=== PATIENT | female | born 1950 | race Caucasian/White ===

== ENCOUNTER 2016-12-03 07:30 | Day surgery (SDC) | payer BC ==
[2016-12-02 09:02] VITALS: BMI 26.5
[~2016-12-03 07:30] MED LIST: LACTATED RINGERS 1,000 ML IV SCH
[2016-12-03 07:55] VITALS: TEMP 97.8
[2016-12-03] MEDS ORDERED: LIDOCAINE 1% 20 ML VIAL (10MG/ML) FOR IV START INTRADERMA ONE (08:04)
[2016-12-03] MEDS ORDERED: PROPOFOL 10 MG/ML 20 ML VIAL IV ONE (08:17)
[2016-12-03] MEDS ORDERED: LIDOCAINE 1% INJ 10MG/ML (20 ML MDV) ONE (08:17)
--- NOTE | 2016-12-03 08:22 | P.GSHP ---
History of Present Illness H&P Date: 12/03/16 Chief Complaint: GERD Patient here today for upper endoscopy. The patient is a history of chronic reflux. Some dysphagia at times. Also has chronic nausea. She takes Zantac no prior upper endoscopy. Past Medical History Past Medical History: GERD/Reflux, Hypertension, Rheumatoid Arthritis (RA) Additional Past Medical History / Comment(s): PT STATES SLEEP APNEA (UNDIAGNOSED ). IBS. History of Any Multi-Drug Resistant Organisms: None Reported Past Surgical History: Appendectomy, Cholecystectomy, Hysterectomy, Orthopedic Surgery Additional Past Surgical History / Comment(s): VARICOSE VEIN. Past Anesthesia/Blood Transfusion Reactions: Motion Sickness Past Psychological History: No Psychological Hx Reported Smoking Status: Never smoker Past Alcohol Use History: Occasional Past Drug Use History: None Reported - Past Family History Sister(s) Family Medical History: Cancer Additional Family Medical History / Comment(s): non hodgkins lymphoma Father Family Medical History: Cancer Additional Family Medical History / Comment(s): multiple myeloma Medications and Allergies Home Medications Medication Instructions Recorded Confirmed Type Esomeprazole Magnesium [NexIUM] 20 mg PO QAM 07/01/14 12/02/16 History Estradiol Cream [Estrace Cream 1 applicate VAGINAL TUTH 07/01/14 12/02/16 History 0.01%] Meloxicam [Meloxicam] 15 mg PO DAILY 07/01/14 12/02/16 History Lifitegrast [Xiidra] 1 dropper BOTH EYES DAILY 12/02/16 12/02/16 History Losartan-Hctz 50-12.5 mg [Hyzaar 1 tab PO DAILY 12/02/16 12/02/16 History 50-12.5] Multivitamins, Thera [Multivitamin] 1 tab PO DAILY 12/02/16 12/02/16 History Ranitidine HCl [Zantac] 150 mg PO HS 12/02/16 12/02/16 History Allergies Allergy/AdvReac Type Severity Reaction Status Date / Time No Known Allergies Allergy Verified 12/02/16 08:46 Surgical - Exam Vital Signs Temp Pulse Resp BP Pulse Ox 97.8 F 74 18 116/75 95 12/03/16 07:54 12/03/16 07:54 12/03/16 07:54 12/03/16 07:54 12/03/16 07:54 Physical exam: General: Well-developed, well-nourished HEENT: Normocephalic, sclerae nonicteric Abdomen: Nontender, nondistended Extremities: No edema Neuro: Alert and oriented Assessment and Plan (1) GERD (gastroesophageal reflux disease) Narrative/Plan: Will proceed with upper endoscopy at this time. Status: Acute
--- NOTE | 2016-12-03 08:30 | P.PCN ---
Date of Procedure: 12/03/16 Procedure(s) Performed: Preoperative Dx: GERD Postoperative Dx: Gastritis, Hiatal hernia, Schatzki's ring Procedure: EGD with Bx Anesthesia: Sedation Endoscopist: Dr. Sy Specimens: Antrum, GE junction Endoscopic Procedure: The patient was on the endoscopy table in the left decubitus position. The Olympus gastroscope was inserted into the oropharynx and passed under direct visualization to the region of the third portion of the duodenum. From that point the scope was slowly withdrawn inspecting all surfaces carefully. There were no neoplastic inflammatory or polypoid lesions throughout the duodenum. The pylorus was widely patent. The stomach was carefully inspected. There was diffuse gastritis present. A biopsy of the antrum took place to rule out H. pylori. Retroflexion revealed a small hiatal hernia. The GE junction was present about 1-1.5 cm above the diaphragmatic hiatus. At the GE junction there was some subtle narrowing consistent with a mild Schatzki's ring a biopsy of the GE junction took place. The remainder the esophagus was examined. This appeared normal. The patient was then taken to the recovery room in stable condition per anesthesia guidelines. Recommendations: Await biopsy results. Modify antiacid therapy.
[2016-12-03 08:38] VITALS: RESP 16
[2016-12-03 08:57] VITALS: BP 137/79; PULSE 79
== END 2016-12-03 09:13 | disposition home or self-care (01) ==
LOC: ORWHC2ENDO 07:30
PROVIDERS: ATTEND Surgery
DX: K21.0 Gastro-esophageal reflux disease with esophagitis (principal); K44.9 Diaphragmatic hernia without obstruction or gangrene; K22.2 Esophageal obstruction; K29.50 Unspecified chronic gastritis without bleeding; I10 Essential (primary) hypertension; M06.9 Rheumatoid arthritis, unspecified; Z79.899 Other long term (current) drug therapy
CPT/HCPCS: 88305; 88342; 43239; J2001; J2704

== ENCOUNTER → 2017-01-31 | Outpatient (CLI) | payer BC ==
--- NOTE | 2017-02-04 07:31 | MM ---
Reason for exam: screening (asymptomatic). Last mammogram was performed 1 year and 4 months ago. History: Patient is postmenopausal and history of other cancer. Benign right US cyst aspiration ea add of the right breast, May 10, 2008. Took estrogen for 10 years 4 months beginning at age 52. Physical Findings: A clinical breast exam by your physician is recommended on an annual basis and results should be correlated with mammographic findings. MG Screening Mammo w CAD Bilateral CC and MLO view(s) were taken. Prior study comparison: September 18, 2015, bilateral MG screening mammo w CAD. August 11, 2014, bilateral MG screening mammo w CAD. July 23, 2013, bilateral digital screening mammo w/CAD. The breast tissue is heterogeneously dense. This may lower the sensitivity of mammography. No significant changes when compared with prior studies. ASSESSMENT: Negative, BI-RAD 1 RECOMMENDATION: Routine screening mammogram of both breasts in 1 year.
== END | disposition home or self-care (01) ==
LOC: RADMAMWWP 16:23
PROVIDERS: ATTEND Obstetrics & Gynecology
DX: Z12.31 Encounter for screening mammogram for malignant neoplasm of breast (principal)

== ENCOUNTER → 2017-03-14 | Outpatient (CLI) | payer BC ==
[2017-03-14 11:19] LABS: Blood Urea Nitrogen 25 mg/dL (7-17); Non-African American GFR(MDRD) >60 (>60 ml/min/1.73 sqM)
--- NOTE | 2017-03-14 12:46 | ECHOS ---
DATE OF SERVICE: 03/14/2017 AGE: 66Y SEX: F HT: 64 WT: 150 lbs. Protocol Juve: X Others: Stress Echo Stage: II Dur. of Exercise: 6 minutes *Heart Rate Blood Pressure *Rest: 79 Rest: 121/81 * *Max. Achieved: 141 Maximum BP: 148/67 85% PMHR: 131 100% PMHR: 154 *METS: 7.1 INDICATIONS: Abnormal EKG. MEDICATIONS: Lisinopril, Mobic. Patient was exercised for a total period of 6 minutes. Peak heart rate of 141 was achieved. Maximum blood pressure of 148/67 mmHg was noted. EKG shows normal sinus rhythm with normal MS interval and QRS duration and normal ST-T waves. About [address] segment depression noted during and in the postexercise period without associated with any symptoms of angina. The test was terminated because patient got short of breath. Baseline echocardiographic images reveals a normal left ventricular chamber size with normal left ventricular systolic function. In the immediate postexercise period, normal increase in the wall thickness and contractility is noted. FINAL IMPRESSION: 1. This stress echocardiographic study is negative for stress-induced ischemia. 2. EKG portion of the stress test shows a ST segment depression without associated with any angina, it could be secondary to hypertension versus ischemia. Clinical correlation is suggested. 3. The patient's stress test was limited because of the symptoms of shortness of breath.
--- NOTE | 2017-03-14 13:02 | CT ---
EXAMINATION TYPE: CT lumbar spine w con DATE OF EXAM: 03/14/2017 COMPARISON: NONE HISTORY: Low back pain. Numbness and tingling. CT DLP: 854.05 mGycm Automated exposure control for dose reduction was used. CONTRAST: CT scan of the lumbar is performed with IV Contrast, patient injected with 100 ml mL of Omnipaque [address] of the lumbar spine was performed. Bone and soft tissue window settings are submitted as well as coronal and sagittal reconstructions. FINDINGS: There is complete loss of intervertebral disc space height at the level of L4-5, no pars defect is id entified. There is grade 1 anterolisthesis of L4 on L5. There is grade 1 retrolisthesis of L5 on S1. There is vacuum disc phenomenon noted at L4-5 and L5-S1. There is compression of the vertebral body a long the inferior endplate of L4. Visualized soft tissue structures are unremarkable. L1-L2: Normal disc space height. No disc herniation protrusion or central stenosis. No facet joint arthropathy. No evidence for foraminal encroachment. L2-L3: There is normal disc space height. There is minimal disc bulge noted which effaces the ventral thecal sac. There is also ligamentum flavum hypertrophy and minimal facet hypertrophy. There is no c entral canal stenosis or foraminal narrowing. L3-L4: Normal disc space height. There is mild disc bulge. There is mild ligamentum flavum hypertroph y and facet arthropathy. There is no central canal stenosis or neural foraminal narrowing. L4-L5: Complete loss of vertebral bodies vertebral disc space height with questionable minimal collap se of the inferior endplate. There is also grade 1 anterolisthesis. There is no central canal stenosi s. There is moderate to severe right greater than left neural foraminal narrowing. L5-S1: No central canal stenosis is identified. There is minimal disc bulge identified. There is face t arthropathy noted. There is moderate bilateral neural foraminal narrowing worse on the left than th e right. IMPRESSION: Foraminal narrowing is noted at the level of L4-5 and L5-S1. There is also complete loss of intervert ebral body disc space height at the level of L4-5 with grade 1 anterolisthesis.
--- NOTE | 2017-03-14 13:10 | CT ---
Exam: CT of the thoracic spine with contrast. TECHNIQUE: Axial CT images were obtained of the thoracic spine after administration of 100 mL Omnipaq ue 300 contrast. Coronal and sagittal reformatted images reviewed at the workstation. No prior studies are available for comparison. DLP: 1192.86 mGy-cm Dose reduction technique was utilized. FINDINGS: Mild dependent changes are noted in both lung bases. The central airways are patent as visualized. Vertebral body height and alignment are maintained. There are no osteolytic or osteoblastic lesions. There are 12 rib-bearing thoracic-type vertebral bodies. C7-T1: No central canal stenosis or neural foraminal narrowing. T1-2: No central canal stenosis or neural foraminal narrowing. T2-3: No central canal stenosis or neural foraminal narrowing. T3-4: No central canal stenosis or neural foraminal narrowing. T4-5: No central canal stenosis or neural foraminal narrowing. T5-6: No central canal stenosis or neural foraminal narrowing. T6-7: No central canal stenosis or neural foraminal narrowing. T7-8: No central canal stenosis or neural foraminal narrowing. T8-9: No central canal stenosis or neural foraminal narrowing. T9-10: No central canal stenosis or neural foraminal narrowing. T10-11:No central canal stenosis or neural foraminal narrowing. T11-12:No central canal stenosis or neural foraminal narrowing. T12-L1:No central canal stenosis or neural foraminal narrowing. IMPRESSION: Unremarkable CT scan of the thoracic spine.
== END | disposition home or self-care (01) ==
LOC: RADNMMAIN 10:03
PROVIDERS: ATTEND Family Medicine
DX: M99.73 Connective tissue and disc stenosis of intervertebral foramina of lumbar region (principal); M43.16 Spondylolisthesis, lumbar region; M51.86 Other intervertebral disc disorders, lumbar region; R94.31 Abnormal electrocardiogram [ECG] [EKG]
CPT/HCPCS: 93017; 93350; 82565; 84520; 72129; 72132; 36415; Q9967

== ENCOUNTER 2017-11-06 12:04 | Emergency (ER) | payer BC ==
[2017-11-06 12:09] VITALS: BP 135/97; PULSE 77; RESP 16; TEMP 97.6
--- NOTE | 2017-11-06 12:22 | ED ---
Fall HPI - General Chief Complaint: Fall Stated Complaint: Fall in Parking Lot Time Seen by Provider: 11/06/17 12:10 Source: patient, RN notes reviewed, old records reviewed Mode of arrival: wheelchair - History of Present Illness Initial Comments: Patient is a 67-year-old female presents emergency Department chief complaint of falling in the parking lot. She reports that she has pain over her left knee and her right hand. She reports that she had no head injury, neck pain or loss consciousness. She reports that she has arthritis in both her knees. She states that she was able to bear weight but it was difficult. She reports that she fell in the parking lot prior to getting a barium swallow study. Patient states she completed the study but felt that she needed to be seen in emergency department due to her joint pains and came here. She denies any numbness or tingling down the legs. She denies any numbness in her fingers. She does have full range of motion of the fingers and wrist. She denies any snuffbox tenderness. Patient states that she has no other complaints. - Related Data Home Medications Medication Instructions Recorded Confirmed Esomeprazole Magnesium [NexIUM] 20 mg PO QAM 07/01/14 12/02/16 Estradiol Cream [Estrace Cream 1 applicate VAGINAL TUTH 07/01/14 12/02/16 0.01%] Meloxicam [Meloxicam] 15 mg PO DAILY 07/01/14 12/02/16 Lifitegrast [Xiidra] 1 dropper BOTH EYES DAILY 12/02/16 12/02/16 Losartan-Hctz 50-12.5 mg [Hyzaar 1 tab PO DAILY 12/02/16 12/02/16 50-12.5] Multivitamins, Thera [Multivitamin] 1 tab PO DAILY 12/02/16 12/02/16 Ranitidine HCl [Zantac] 150 mg PO HS 12/02/16 12/02/16 Allergies Allergy/AdvReac Type Severity Reaction Status Date / Time No Known Allergies Allergy Verified 11/06/17 12:06 Review of Systems ROS Statement: Those systems with pertinent positive or pertinent negative responses have been documented in the HPI. ROS Other: All systems not noted in ROS Statement are negative. Past Medical History Past Medical History: GERD/Reflux, Hypertension, Rheumatoid Arthritis (RA) Additional Past Medical History / Comment(s): PT STATES SLEEP APNEA (UNDIAGNOSED ). IBS. History of Any Multi-Drug Resistant Organisms: None Reported Past Surgical History: Appendectomy, Cholecystectomy, Hysterectomy, Orthopedic Surgery Additional Past Surgical History / Comment(s): VARICOSE VEIN. Past Anesthesia/Blood Transfusion Reactions: Motion Sickness Past Psychological History: No Psychological Hx Reported Smoking Status: Never smoker Past Alcohol Use History: Occasional Past Drug Use History: None Reported - Past Family History Sister(s) Family Medical History: Cancer Additional Family Medical History / Comment(s): non hodgkins lymphoma Father Family Medical History: Cancer Additional Family Medical History / Comment(s): multiple myeloma General Exam - General Exam Comments Initial Comments: This patient is a 57-year-old female. Alert and oriented 4. No acute distress. Limitations: no limitations General appearance: alert, in no apparent distress Head exam: Present: atraumatic, normocephalic, normal inspection Eye exam: Present: normal appearance, PERRL, EOMI. Absent: scleral icterus, conjunctival injection, periorbital swelling ENT exam: Present: normal exam, mucous membranes moist Neck exam: Present: normal inspection. Absent: tenderness, meningismus, lymphadenopathy Respiratory exam: Present: normal lung sounds bilaterally. Absent: respiratory distress, wheezes, rales, rhonchi, stridor Cardiovascular Exam: Present: regular rate, normal rhythm, normal heart sounds. Absent: systolic murmur, diastolic murmur, rubs, gallop, clicks GI/Abdominal exam: Present: soft, normal bowel sounds. Absent: distended, tenderness, guarding, rebound, rigid Extremities exam: Present: normal inspection, full ROM, normal capillary refill. Absent: tenderness, pedal edema, joint swelling, calf tenderness Right Forearm Wrist exam: Present: normal inspection, full ROM Hand Wrist exam: Present: normal inspection, full ROM, tenderness (Patient has some tenderness and swelling over the thenar eminence.), swelling Neuro motor exam: Present: wrist extension intact, thumb opposition intact, thumb IP flexion intact, thumb adduction intact, fingers 2-5 abduction intact Vascular: Present: normal capillary refill Left Upper Leg exam: Present: normal inspection, full ROM Knee exam: Present: full ROM, tenderness (Patient is some tenderness and swelling near the medial meniscus. Patient does have some crepitus with range of motion.), swelling, crepitus. Absent: normal inspection, abrasion, laceration, ecchymosis, deformity, dislocation, erythema, effusion Lower Leg exam: Present: normal inspection, full ROM Ankle exam: Present: normal inspection, full ROM Foot/Toe exam: Present: normal inspection, full ROM Neurovascular tendon exam: Present: no vascular compromise Gait: observed and normal Back exam: Present: normal inspection Neurological exam: Present: alert Psychiatric exam: Present: normal affect, normal mood Course Vital Signs 11/06/17 12:06 Temperature 97.6 F Pulse Rate 77 Respiratory 16 Rate Blood Pressure 135/97 O2 Sat by Pulse 98 Oximetry Medical Decision Making - Medical Decision Making Patient is a 67-year-old female presents emergency Department chief complaint of falling in the parking lot. She reports that she has pain over her left knee and her right hand. She reports that she had no head injury, neck pain or loss consciousness. She reports that she has arthritis in both her knees. She states that she was able to bear weight but it was difficult. Patient has full ROM of hands and legs. Patient xrays show evidence of arthritis. Patient has no fractures or disclocation. Patietn was ginve knee brace, and CORDELIA wrap. Patient will follow up with orthopedic. She will take aat home arthritis medication and return parameters were discussed. - Radiology Data Radiology results: report reviewed Distal femur shows early minor for deformity possible bone dysplasia hypertrophic change in the proximal fibula is chronic and may be due to remote trauma however lucent lesion may be due to prior surgery. Joint space loss is present in the medial compartment. Alignment is maintained. Bone mineralization is reduced. There may be a small joint effusion. Head this time is no acute fracture dislocation. Hand x-ray shows a circular changes especially the first digit metacarpal metacarpal joint of the first digit additional digits. Bone mineralization is reduced. Alignment is maintained. Punctate ossific densities present in the distal ulnar styloid which/we will not felt likely to be acute. No acute fracture dislocation. Osteoarthritis is noted osteopenia is noted. Disposition Clinical Impression: Effusion, left knee, Fall, Right wrist sprain Disposition: HOME SELF-CARE Condition: Good Instructions: Knee Pain (ED) Additional Instructions: Patient advised to follow-up with water treatment specialist. Take anti- inflammatory medicine for pain. Also apply ice over the area. Return to the emergency department if any alarming signs or symptoms occur. Referrals: Ángel Buck MD [Primary Care Provider] - 1-2 days Stephen Neri MD [Medical Doctor] - 1-2 days Time of Disposition: 13:23
--- NOTE | 2017-11-06 12:41 | XR ---
Right hand HISTORY: Trauma and pain to thumb 3 views of the right hand No comparisons There are osteoarthritic changes especially within the first digit, carpometacarpal joint of the firs t digit, additional digits. Bone mineralization is reduced. Alignment is maintained. Punctate ossific density is present distal to the ulnar styloid which is thought to be well-corticated and not felt l ikely to be acute. IMPRESSION: No acute fracture or dislocation. Osteoarthritis. Osteopenia.
--- NOTE | 2017-11-06 12:45 | XR ---
Left knee HISTORY: Trauma and pain 2 views of the left knee Distal femur shows an Erlenmeyer flask deformity, possible bone dysplasia. Hypertrophic change of the proximal fibula is chronic and may be due to remote trauma, however, lucent lesion may be due to elisa or surgery. Joint space loss present in the medial compartment. Alignment is maintained. Bone mineral ization is reduced. There may be a small joint effusion. IMPRESSION: No acute fracture or dislocation. Additional findings above.
== END 2017-11-06 13:30 | disposition home or self-care (01) ==
LOC: EC 12:04
DX: S63.501A Unspecified sprain of right wrist, initial encounter (principal); M25.462 Effusion, left knee; M19.041 Primary osteoarthritis, right hand; M85.841 Other specified disorders of bone density and structure, right hand; M17.0 Bilateral primary osteoarthritis of knee; I10 Essential (primary) hypertension; K21.9 Gastro-esophageal reflux disease without esophagitis; M06.9 Rheumatoid arthritis, unspecified; Z79.1 Long term (current) use of non-steroidal anti-inflammatories (NSAID); Z79.899 Other long term (current) drug therapy; W19.XXXA Unspecified fall, initial encounter; Y93.01 Activity, walking, marching and hiking; Y92.481 Parking lot as the place of occurrence of the external cause
CPT/HCPCS: 73130; 73562; 99284; L1830

== ENCOUNTER → 2017-11-06 | Outpatient (CLI) | payer BC ==
--- NOTE | 2017-11-06 12:23 | FL ---
ESOPHOGRAM. HISTORY: Dysphagia Flouro time 0.6 mins, EZ gas 1 pkg, EZ HD 3 oz, EZ Paque 2 oz 28 images submitted. Esophagram was performed per the air contrast technique. The patient swallowed barium and effervesce nt crystals without difficulty or delay. Esophageal peristalsis and motility appear to be within normal limits. There is no evidence for filling defect, mass or diverticulum. Small sliding-type hiatal hernia detected. Subsequently single contrast cervical esophagram was performed which fails demonstrate evidence for a spiration penetration or mass. IMPRESSION: 1.Small sliding-type hiatal hernia
== END | disposition home or self-care (01) ==
LOC: RADFLWHC 10:53
PROVIDERS: ATTEND Family Medicine
DX: K44.9 Diaphragmatic hernia without obstruction or gangrene (principal); K21.9 Gastro-esophageal reflux disease without esophagitis
CPT/HCPCS: 74220

== ENCOUNTER → 2018-02-11 | Outpatient (CLI) | payer BC ==
--- NOTE | 2018-02-12 09:35 | MM ---
Reason for exam: screening (asymptomatic). Last mammogram was performed 1 year ago. History: Patient is postmenopausal and history of other cancer. Benign right US cyst aspiration ea add of the right breast, May 10, 2008. Took estrogen for 10 years 4 months beginning at age 52. Physical Findings: A clinical breast exam by your physician is recommended on an annual basis and results should be correlated with mammographic findings. MG Screening Mammo w CAD Bilateral CC and MLO view(s) were taken. Prior study comparison: January 31, 2017, bilateral MG screening mammo w CAD. September 18, 2015, bilateral MG screening mammo w CAD. The breast tissue is heterogeneously dense. This may lower the sensitivity of mammography. No suspicious abnormality. No significant changes when compared with prior studies. ASSESSMENT: Negative, BI-RAD 1 RECOMMENDATION: Routine screening mammogram of both breasts in 1 year.
== END | disposition home or self-care (01) ==
LOC: RADMAMWWP 15:52
PROVIDERS: ATTEND Obstetrics & Gynecology
DX: Z12.31 Encounter for screening mammogram for malignant neoplasm of breast (principal)
CPT/HCPCS: 77067

== ENCOUNTER → 2018-03-09 | Outpatient (CLI) | payer BC ==
[2018-03-09 16:37] LABS: Basophils % (A) 0 %; Eosinophils # (A) 0.4 k/uL (0-0.7); Eosinophils % (A) 7 %; HCT 42.5 % (34.0-46.0); HGB 14.1 gm/dL (11.4-16.0); Lymphocytes # (A) 1.1 k/uL (1.0-4.8); Lymphocytes % (A) 18 %; MCH 30.7 pg (25.0-35.0); MCHC 33.2 g/dL (31.0-37.0); MCV 92.4 fL (80.0-100.0); Mean Platelet Volume 7.2; Monocytes # (A) 0.4 k/uL (0-1.0); Monocytes % (A) 7 %; Neutrophils # (A) 3.8 k/uL (1.3-7.7); Neutrophils % (A) 64 %; Platelet Count 216 k/uL (150-450); RDW 12.8 % (11.5-15.5)
[2018-03-09 16:51] LABS: ALT 36 U/L (9-52); AST 34 U/L (14-36); Albumin 4.8 g/dL (3.5-5.0); Alkaline Phosphatase 98 U/L (38-126); Anion Gap 12 mmol/L; Blood Urea Nitrogen 18 mg/dL (7-17); Calcium 9.8 mg/dL (8.4-10.2); Carbon Dioxide 28 mmol/L (22-30); Chloride 102 mmol/L (98-107); Glucose 104 mg/dL (74-99); Potassium 3.8 mmol/L (3.5-5.1); Sodium 142 mmol/L (137-145); Total Bilirubin 0.7 mg/dL (0.2-1.3); Total Protein 7.7 g/dL (6.3-8.2)
[2018-03-10 04:10] LABS: Gliadin AB IgA, Unit 5.8 U/mL
== END | disposition home or self-care (01) ==
LOC: LABWHC1 16:12
PROVIDERS: ATTEND Internal Medicine Gastroenterology
DX: K58.0 Irritable bowel syndrome with diarrhea (principal)
CPT/HCPCS: 36415; 80053; 83516; 85025

== ENCOUNTER → 2019-12-09 | Outpatient (CLI) | payer MEDICARE ==
--- NOTE | 2019-12-09 11:54 | MM ---
Reason for exam: screening (asymptomatic). Last mammogram was performed 1 year and 10 months ago. History: Patient is postmenopausal and history of other cancer. Benign right US cyst aspiration ea add of the right breast, May 10, 2008. Took estrogen for 10 years 4 months beginning at age 52. Physical Findings: A clinical breast exam by your physician is recommended on an annual basis and results should be correlated with mammographic findings. MG Screening Mammo w CAD Bilateral CC and MLO view(s) were taken. Prior study comparison: February 11, 2018, bilateral MG screening mammo w CAD. January 31, 2017, bilateral MG screening mammo w CAD. The breast tissue is heterogeneously dense. This may lower the sensitivity of mammography. There is no discrete abnormality. ASSESSMENT: Negative, BI-RAD 1 RECOMMENDATION: Routine screening mammogram of both breasts in 1 year.
== END | disposition home or self-care (01) ==
LOC: RADMAMWWP 11:03
PROVIDERS: ATTEND Family Medicine
DX: Z12.31 Encounter for screening mammogram for malignant neoplasm of breast (principal)
CPT/HCPCS: 77067

== ENCOUNTER 2020-06-22 08:58 | Day surgery (SDC) | payer MEDICARE ==
[2020-06-20 08:43] VITALS: BMI 27.4
[2020-06-22 09:16] VITALS: TEMP 96.9
[2020-06-22] MEDS ORDERED: PROPOFOL 10 MG/ML 20 ML VIAL IV ONE (09:38)
--- NOTE | 2020-06-22 10:31 | P.PCN ---
Date of Procedure: 06/22/20 Procedure(s) Performed: BRIEF HISTORY: Patient is a 69-year-old pleasant white female scheduled for an elective colonoscopy as a part of screening for colorectal neoplasia. She does have family history of colon cancer in her first cousin at age 70 and maternal aunt on the same side of the family at age 75. PROCEDURE PERFORMED: Colonoscopy. PREOPERATIVE DIAGNOSIS: Screening for colon cancer/family history of colon cancer. IV sedation per Anesthesia. PROCEDURE: After informed consent was obtained, the patient, was brought into the endoscopy unit. IV sedation was administered by Anesthesia under continuous monitoring. Digital rectal examination was normal. Initially the Olympus CF-160 flexible video colonoscope was then inserted in the rectum, gradually advanced into the cecum without any difficulty. Careful examination was performed as the scope was gradually being withdrawn. Ileocecal valve and the appendiceal orifice were visualized and appeared normal. Prep was excellent. Mucosa of the cecum, ascending colon, transverse colon, descending colon, sigmoid colon, and rectum appeared normal. Scattered sigmoidal diverticulosis seen. Retroflexion was performed in the rectum and no lesions were seen. The patient tolerated the procedure well. IMPRESSION: Normal-appearing colon from rectum to cecum with no evidence of colorectal neoplasia. Scattered sigmoid diverticulosis. RECOMMENDATIONS: Findings of this examination were discussed with the patient as well as a family. She was advised to have a repeat screening colonoscopy every 5 years because of the family history of colon cancer..
[2020-06-22 10:40] VITALS: RESP 16
[2020-06-22 10:46] VITALS: BP 134/86; PULSE 76
== END 2020-06-22 10:58 | disposition home or self-care (01) ==
LOC: ORWHC2ENDO 08:58
PROVIDERS: ATTEND Internal Medicine Gastroenterology
DX: Z12.11 Encounter for screening for malignant neoplasm of colon (principal); K57.30 Diverticulosis of large intestine without perforation or abscess without bleeding; Z80.0 Family history of malignant neoplasm of digestive organs; I10 Essential (primary) hypertension; M19.90 Unspecified osteoarthritis, unspecified site; K21.9 Gastro-esophageal reflux disease without esophagitis; Z79.899 Other long term (current) drug therapy
CPT/HCPCS: G0105; J2704

== ENCOUNTER → 2020-12-27 | Outpatient (CLI) | payer MEDICARE ==
--- NOTE | 2020-12-29 12:11 | MM ---
Reason for exam: screening (asymptomatic). Last mammogram was performed 1 year and 1 month ago. History: Patient is postmenopausal and history of other cancer. Benign right US cyst aspiration ea add of the right breast, May 10, 2008. Took estrogen for 10 years 4 months beginning at age 52. Physical Findings: A clinical breast exam by your physician is recommended on an annual basis and results should be correlated with mammographic findings. MG Screening Mammo w CAD Bilateral CC and MLO view(s) were taken. Prior study comparison: December 09, 2019, bilateral MG screening mammo w CAD. February 11, 2018, bilateral MG screening mammo w CAD. The breast tissue is heterogeneously dense. This may lower the sensitivity of mammography. No significant changes when compared with prior studies. ASSESSMENT: Negative, BI-RAD 1 RECOMMENDATION: Routine screening mammogram of both breasts in 1 year.
== END | disposition home or self-care (01) ==
LOC: RADMAMWWP 16:06
PROVIDERS: ATTEND Family Medicine
DX: Z12.31 Encounter for screening mammogram for malignant neoplasm of breast (principal); Z78.0 Asymptomatic menopausal state
CPT/HCPCS: 77067

== ENCOUNTER → 2021-05-17 | Outpatient (CLI) | payer MEDICARE ==
[2021-05-17 21:37] LABS: Hemoglobin A1C 4.9 % (4.0-6.0)
== END | disposition home or self-care (01) ==
LOC: LABWHC1 14:06
PROVIDERS: ATTEND Ophthalmology Ophthalmic Plastic and Reconstructive Surgery
DX: E11.311 Type 2 diabetes mellitus with unspecified diabetic retinopathy with macular edema (principal)
CPT/HCPCS: 36415; 83036

== ENCOUNTER → 2022-01-18 | Outpatient (CLI) | payer MEDICARE ==
--- NOTE | 2022-01-21 09:29 | MM ---
Reason for exam: screening (asymptomatic). Last mammogram was performed 1 year and 1 month ago. History: Patient is postmenopausal and history of other cancer. Benign right US cyst aspiration ea add of the right breast, May 10, 2008. Took estrogen for 10 years 4 months beginning at age 52. Physical Findings: A clinical breast exam by your physician is recommended on an annual basis and results should be correlated with mammographic findings. MG Screening Mammo w CAD Bilateral CC and MLO view(s) were taken. Prior study comparison: December 27, 2020, bilateral MG screening mammo w CAD. December 09, 2019, bilateral MG screening mammo w CAD. The breast tissue is heterogeneously dense. This may lower the sensitivity of mammography. There is no discrete abnormality. No significant changes when compared with prior studies. ASSESSMENT: Negative, BI-RAD 1 RECOMMENDATION: Routine screening mammogram of both breasts in 1 year.
== END | disposition home or self-care (01) ==
LOC: RADMAMWWP 13:10
PROVIDERS: ATTEND Family Medicine
DX: Z12.31 Encounter for screening mammogram for malignant neoplasm of breast (principal)
CPT/HCPCS: 77067

== ENCOUNTER 2022-01-26 18:28 | Inpatient (IN) | payer MEDICARE ==
[2022-01-26] MEDS ORDERED: MORPHINE SULFATE 4 MG/ML SYRINGE IVP STA (18:30)
[2022-01-26 18:52] LABS: HCT 39.2 % (34.0-46.0); HGB 12.9 gm/dL (11.4-16.0); MCH 31.5 pg (25.0-35.0); MCV 95.4 fL (80.0-100.0); Mean Platelet Volume 7.5; Platelet Count 189 k/uL (150-450); RBC 4.11 m/uL (3.80-5.40); RDW 12.1 % (11.5-15.5); WBC 5.3 k/uL (3.8-10.6)
[2022-01-26 18:57] LABS: Albumin 4.1 g/dL (3.5-5.0); Calcium 8.9 mg/dL (8.4-10.2); Potassium 3.5 mmol/L (3.5-5.1); Total Bilirubin 0.5 mg/dL (0.2-1.3)
[2022-01-26 18:58] LABS: Partial Thromboplastin Time 23.9 sec (22.0-30.0)
--- NOTE | 2022-01-26 19:08 | XR ---
EXAMINATION TYPE: XR chest 1V portable DATE OF EXAM: 01/26/2022 COMPARISON: NONE HISTORY: Pain TECHNIQUE: Single view FINDINGS: Heart is normal. There is some coarse linear density in the lower lung oh. There are no hilar masses. Bony thorax is intact. There is deformity proximal right humerus that could be old fra cture. IMPRESSION: Mild subsegmental atelectasis or scarring at the lung bases. Normal heart. No heart failu re. No pneumothorax.
--- NOTE | 2022-01-26 19:09 | XR ---
EXAMINATION TYPE: XR Hip LT and AP Pelvis DATE OF EXAM: 01/26/2022 COMPARISON: NONE HISTORY: Pain TECHNIQUE: 3 views FINDINGS: There is acute slightly impacted fracture through the base of the left femoral neck. No dis location. Pelvic ring is intact. IMPRESSION: Acute fracture left femoral neck.
[2022-01-26] MEDS ORDERED: HYDROmorphone 0.5 MG/0.5 ML SYRINGE IVP STA (19:10)
--- NOTE | 2022-01-26 19:12 | ED ---
General Adult HPI - General Stated complaint: Fall Time Seen by Provider: 01/26/22 18:29 Source: patient, EMS, RN notes reviewed, old records reviewed Mode of arrival: EMS Limitations: physical limitation - History of Present Illness Initial comments: 71-year-old female who presents for evaluation of left hip pain status post fall. Patient was transported by EMS. She was walking outside, tripped over concrete and fell directly onto her left hip. She denies head or neck trauma. No other pain complaints. No other injuries. Patient denies anticoagulation. - Related Data Home Medications Medication Instructions Recorded Confirmed Celecoxib [CeleBREX] 200 mg PO DAILY 06/20/20 06/20/20 Niacinamide 500 mg PO DAILY 06/20/20 06/20/20 Allergies Allergy/AdvReac Type Severity Reaction Status Date / Time No Known Allergies Allergy Verified 01/26/22 19:13 Review of Systems ROS Statement: Those systems with pertinent positive or pertinent negative responses have been documented in the HPI. ROS Other: All systems not noted in ROS Statement are negative. Past Medical History Past Medical History: Cancer, GERD/Reflux, GI Bleed, Hypertension, Osteoarthritis (OA) Additional Past Medical History / Comment(s): Patient states has undiagnosed Sleep Apnea. IBS. Skin cancer 5-6 yrs ago. History of Any Multi-Drug Resistant Organisms: None Reported Past Surgical History: Appendectomy, Cholecystectomy, Hysterectomy, Orthopedic Surgery Additional Past Surgical History / Comment(s): VARICOSE VEIN. Hemmorrhoidectomy. Past Anesthesia/Blood Transfusion Reactions: No Reported Reaction Past Psychological History: No Psychological Hx Reported Smoking Status: Never smoker Past Alcohol Use History: Occasional Past Drug Use History: None Reported - Past Family History Sister(s) Family Medical History: Cancer Additional Family Medical History / Comment(s): Non Hodgkins Lymphoma. Father Family Medical History: Cancer Additional Family Medical History / Comment(s): Multiple Myeloma. General Exam Limitations: physical limitation General appearance: alert, in no apparent distress Head exam: Present: atraumatic, normocephalic Eye exam: Present: normal appearance, PERRL ENT exam: Present: normal exam Neck exam: Present: normal inspection. Absent: tenderness, meningismus Respiratory exam: Present: normal lung sounds bilaterally. Absent: respiratory distress, wheezes Cardiovascular Exam: Present: regular rate, normal rhythm GI/Abdominal exam: Present: soft. Absent: distended, tenderness, guarding Extremities exam: Present: other (Slight shortening of the left lower extremity, distal pulses are intact, pain with any range of motion at the hip.). Absent: full ROM Neurological exam: Present: alert, oriented X3, CN II-XII intact. Absent: motor sensory deficit Psychiatric exam: Present: normal affect, normal mood Skin exam: Present: warm, dry, intact. Absent: cyanosis, diaphoretic Course Vital Signs 01/26/22 18:33 Temperature 98.9 F Pulse Rate 103 H Respiratory 18 Rate Blood Pressure 135/73 O2 Sat by Pulse 95 Oximetry EKG Findings - EKG Comments: EKG Findings:: Sinus rhythm rate of 90, [place] interval 184, QRS duration 94, QTC 448, no ST segment changes. Medical Decision Making - Medical Decision Making 71-year-old female who presents with left hip pain status post fall. High suspicion for fracture of the left hip. X-rays are obtained, showing a femoral neck fracture. Chest x-ray is clear, no traumatic injury. Preoperative laboratory testing is unremarkable. Case discussed with orthopedics, Dr. Neri. - Lab Data Result diagrams: 01/26/22 18:37 01/26/22 18:37 Lab Results 01/26/22 01/26/22 01/26/22 Range/Units 18:37 18:37 18:37 WBC 5.3 (3.8-10.6) k/uL RBC 4.11 (3.80-5.40) m/uL Hgb 12.9 (11.4-16.0) gm/dL Hct 39.2 (34.0-46.0) % MCV 95.4 (80.0-100.0) fL MCH 31.5 (25.0-35.0) pg MCHC 33.0 (31.0-37.0) g/dL RDW 12.1 (11.5-15.5) % Plt Count 189 (150-450) k/uL MPV 7.5 PT 11.0 (9.0-12.0) sec INR 1.0 (<1.2) APTT 23.9 (22.0-30.0) sec Sodium 138 (137-145) mmol/L Potassium 3.5 (3.5-5.1) mmol/L Chloride 103 (98-107) mmol/L Carbon Dioxide 26 (22-30) mmol/L Anion Gap 9 mmol/L BUN 17 (7-17) mg/dL Creatinine 0.81 (0.52-1.04) mg/dL Est GFR (CKD-EPI)AfAm 85 (>60 ml/min/1.73 sqM) Est GFR (CKD-EPI)NonAf 74 (>60 ml/min/1.73 sqM) Glucose 117 H (74-99) mg/dL Calcium 8.9 (8.4-10.2) mg/dL Total Bilirubin 0.5 (0.2-1.3) mg/dL AST 35 (14-36) U/L ALT 24 (4-34) U/L Alkaline Phosphatase 87 (38-126) U/L Total Protein 7.0 (6.3-8.2) g/dL Albumin 4.1 (3.5-5.0) g/dL Disposition Clinical Impression: Fall, Fracture of femoral neck Disposition: ADMITTED IP TO THIS HOSP Condition: Stable Is patient prescribed a controlled substance at d/c from ED?: No Referrals: Ángel Buck MD [Primary Care Provider] - 1-2 days Time of Disposition: 19:11
[2022-01-26] MEDS ORDERED: HYDROmorphone 0.5 MG/0.5 ML SYRINGE IVP PRN (19:16)
[2022-01-26] MEDS ORDERED: NALOXONE 0.4 MG/ML 1 ML VIAL IV PRN (19:16)
[2022-01-26 19:40] LABS: Lymphocytes # (M) 1.96 k/uL (1.0-4.8); Monocytes # (M) 0.32 k/uL (0-1.0); Neutrophils # (M) 3.02 k/uL (1.3-7.7); Neutrophils % (M) 57 %; Nucleated Red Blood Cells 0 /100 WBC (0-0); Total Cells Counted 100
[2022-01-26 19:41] LABS: RBC Morphology Normal
--- NOTE | 2022-01-26 20:08 | CT ---
EXAMINATION TYPE: CT hip LT wo con DATE OF EXAM: 01/26/2022 COMPARISON: None HISTORY: surgical planning for fx left hip CT DLP: 658.7 mGycm Automated exposure control for dose reduction was used. There is nondisplaced fracture at the base of the left femoral neck. There is impaction of 5 mm. Ther e is no dislocation. Acetabulum is intact. No evidence of a soft tissue mass. IMPRESSION: Acute oblique mildly impacted fracture of the base of the left femoral neck.
[2022-01-26] MEDS: SODIUM CHLORIDE 0.9% 1,000 ML IV SCH (20:15)
[2022-01-26] MEDS: HYDROmorphone 1 MG/ML 1 ML SYRINGE IVP PRN (23:57)
[2022-01-27] MEDS: HYDROmorphone 1 MG/ML 1 ML SYRINGE IVP PRN (05:59)
[2022-01-27] MEDS: SODIUM CHLORIDE 0.9% 1,000 ML IV SCH ×2 (07:40→18:21)
--- NOTE | 2022-01-27 10:51 | P.HPOR ---
History of Present Illness H&P Date: 01/27/22 This is a 71-year-old female who is admitted for left hip fracture. Patient's past medical history is significant for GERD, hypertension, history of GI bleed and history of skin cancer. Patient is seen and evaluated at bedside today. Patient states that she was at her niece's house yesterday when she fell and landed onto the left hip. Patient was then evaluated in the emergency room where x-rays revealed a left femoral neck fracture. Patient states that she does live alone, but does not need any assistive devices to ambulate. Patient states that her pain is well controlled as long she does not move the left leg. Patient denies any fever/chills, numbness, weakness, tingling, abdominal pain, shortness of breath or chest pain. Review of Systems See HPI. Past Medical History Past Medical History: Cancer, GERD/Reflux, GI Bleed, Hypertension, Osteoarthritis (OA) Additional Past Medical History / Comment(s): Patient states has undiagnosed Sleep Apnea. IBS. Skin cancer 5-6 yrs ago. History of Any Multi-Drug Resistant Organisms: None Reported Past Surgical History: Appendectomy, Cholecystectomy, Hysterectomy, Orthopedic Surgery Additional Past Surgical History / Comment(s): VARICOSE VEIN. Hemmorrhoidectomy. Past Anesthesia/Blood Transfusion Reactions: No Reported Reaction Past Psychological History: No Psychological Hx Reported Smoking Status: Never smoker Past Alcohol Use History: Occasional Past Drug Use History: None Reported - Past Family History Sister(s) Family Medical History: Cancer Additional Family Medical History / Comment(s): Non Hodgkins Lymphoma. Father Family Medical History: Cancer Additional Family Medical History / Comment(s): Multiple Myeloma. Medications and Allergies Home Medications Medication Instructions Recorded Confirmed Type Celecoxib [CeleBREX] 200 mg PO DAILY 06/20/20 01/26/22 History Niacinamide 500 mg PO DAILY 06/20/20 01/26/22 History Amitriptyline HCl 25 mg PO HS 01/26/22 01/26/22 History Brimonidine Tartrate [Lumify] 1 drop BOTH EYES DAILY PRN 01/26/22 01/26/22 History Celecoxib [CeleBREX] 200 mg PO DAILY 01/26/22 01/26/22 History Cholecalciferol [Vitamin D3 (25 50 mcg PO DAILY 01/26/22 01/26/22 History Mcg = 1000 Iu)] Fluocinonide [Lidex 0.05%] 1 applic TOPICAL DAILY PRN 01/26/22 01/26/22 History Glucosamine/Chondr Nguyen A Sod [Osteo 1 tab PO BID 01/26/22 01/26/22 History Bi-Flex Caplet] Hydroxychloroquine Sulfate 200 mg PO BID 01/26/22 01/26/22 History [Plaquenil] Ketoconazole 2% Shampoo [Nizoral] 1 applic TOPICAL DAILY PRN 01/26/22 01/26/22 History Esteban 3s Fish Oil, Flax Oil, & 1 cap PO BID 01/26/22 01/26/22 History Borage Oil Multivit-Min/Iron/Folic/Lutein 1 tab PO DAILY 01/26/22 01/26/22 History [Centrum Silver Women Tablet] Omeprazole [PriLOSEC] 20 mg PO DAILY 01/26/22 01/26/22 History Pilocarpine [Salagen] 5 mg PO TID 01/26/22 01/26/22 History Propylene Glycol/Peg 400/Pf 1 dropper BOTH EYES DAILY PRN 01/26/22 01/26/22 History [Systane 0.3-0.4% Eye Drop] Valsartan/Hydrochlorothiazide 1 tab PO DAILY 01/26/22 01/26/22 History [Valsartan-Hctz 160-12.5 mg Tab] Allergies Allergy/AdvReac Type Severity Reaction Status Date / Time No Known Allergies Allergy Verified 01/26/22 19:13 Physical Examination On exam patient is resting comfortably in bed in no acute distress. Patient is alert and oriented 3. On exam of the left lower extremity skin is intact. There is pain and limitation with range of motion. Calf is soft and nontender to palpation. Sensation intact. Dorsalis pedis pulse is 2+. Neurovascular status and circulatory status are intact. Exams of the head, neck, bilateral upper extremities and right lower extremity are within normal limits. Results X-rays of the left hip and pelvis are reviewed revealing left femoral neck fra cture. A CT report of the left hip reveals: Acute oblique mildly impacted fracture of the base of the left femoral neck. - Labs Labs: Abnormal Lab Results - Last 24 Hours (Table) 01/26/22 Range/Units 18:37 Glucose 117 H (74-99) mg/dL H & H 01/26/22 Range/Units 18:37 Hgb 12.9 (11.4-16.0) gm/dL Hct 39.2 (34.0-46.0) % Coagulation 01/26/22 Range/Units 18:37 INR 1.0 (<1.2) Result Diagrams: 01/26/22 18:37 01/26/22 18:37 Assessment and Plan (1) Closed left hip fracture Current Visit: Yes Status: Acute Code(s): S72.002A - FRACTURE OF UNSP PART OF NECK OF LEFT FEMUR, INIT SNOMED Code(s): 810541528 (2) Fall Current Visit: Yes Status: Acute Code(s): W19.XXXA - UNSPECIFIED FALL, INITIAL ENCOUNTER SNOMED Code(s): 9498716 Plan: 1. Patient is to be NPO. 2. X-rays and CT are reviewed revealing fracture of the left femoral neck. 3. Patient is to be nonweightbearing to the left lower extremity. Continue pain control. 4. Planning for left hip gamma nail in the operating room later this afternoon with Dr. Neri pending medical clearance and patient consent.
[2022-01-27] MEDS ORDERED: MIDAZOLAM 2 MG/2 ML VIAL ONE (13:52)
[2022-01-27] MEDS ORDERED: PROPOFOL 10 MG/ML 20 ML VIAL IV ONE (13:52)
[2022-01-27] MEDS ORDERED: fentaNYL (PF) 50 MCG/ML 2 ML AMP ONE (13:52)
[2022-01-27] MEDS ORDERED: LIDOCAINE 2% INJ 20 MG/ML (2 ML VIAL) ONE (13:52)
[2022-01-27] MEDS ORDERED: TRANEXAMIC ACID IN NACL,ISO-OS 1,000 MG/100 ML BAG ONE (13:52)
[2022-01-27] MEDS ORDERED: KETOROLAC 15 MG/ML 1 ML VIAL ONE (13:52)
[2022-01-27] MEDS ORDERED: IV FLUID CONTINUATION 1,000 ML IV ONE (13:53)
[2022-01-27] MEDS ORDERED: SODIUM CHLORIDE 0.9% 100 ML with ceFAZolin 2,000 MG IV ONE ×2 (14:08)
[2022-01-27] MEDS ORDERED: TRANEXAMIC ACID IN NACL,ISO-OS 1,000 MG in SALINE 1 100ML.BAG IVPB ONE (14:10)
[2022-01-27] MEDS ORDERED: TRANEXAMIC ACID IN NACL,ISO-OS 1,000 MG/100 ML BAG IRRIGATION ONE (14:10)
[2022-01-27] MEDS ORDERED: EPINEPHrine 2 MG in SODIUM CHLORIDE 0.9% 200 ML IV ONE (15:28)
[2022-01-27] MEDS ORDERED: MAGNESIUM HYDROXIDE 2,400 MG/10 ML CUP PO PRN (16:32)
[2022-01-27] MEDS ORDERED: HYDROmorphone 0.5 MG/0.5 ML SYRINGE IVP PRN ×2 (16:32)
[2022-01-27] MEDS ORDERED: ONDANSETRON 4 MG/2 ML VIAL IVP PRN (16:32)
[2022-01-27] MEDS ORDERED: NALOXONE 0.4 MG/ML 1 ML VIAL IV PRN (16:32)
[2022-01-27] MEDS ORDERED: HYDROcodone/APAP 7.5-325MG 1 EACH TAB PO PRN (16:33)
[2022-01-27] MEDS ORDERED: ROPIVACAINE/EPI/CLONIDINE/KET 50 ML SYRINGE MISCELLANE PRN (16:56)
[2022-01-27] MEDS ORDERED: LACTATED RINGERS 1,000 ML IV ONE (17:14)
[2022-01-27] MEDS ORDERED: HYDROmorphone 0.5 MG/0.5 ML SYRINGE IVP ONE (17:32)
[2022-01-27] MEDS ORDERED: ARTIFICIAL TEARS-HYPROMELLOSE DROPS 15 ML BTL BOTH EYES PRN (17:34)
--- NOTE | 2022-01-27 17:35 | XR ---
EXAMINATION TYPE: XR Hip Limited LT DATE OF EXAM: 01/27/2022 COMPARISON: NONE HISTORY: Hip pain TECHNIQUE: 10 views FINDINGS: There is series of fluoroscopic images which show placement of a left total hip prosthesis. Components are in anatomic position. There was 1.2 minutes of fluoroscopy time recorded for the exam. IMPRESSION: No complicating process seen.
--- NOTE | 2022-01-27 17:37 | P.CONS ---
History of Present Illness - Reason for Consult Consult date: 01/27/22 Medical clearance for surgery/medical management - Chief Complaint Fall - History of Present Illness 71-year-old female who is admitted for left hip fracture. Patient's past medical history is significant for GERD, hypertension, history of GI bleed and history of skin cancer. Patient is seen and evaluated at bedside today. Patient states that she was at her niece's house yesterday when she fell and landed onto the left hip. Patient was then evaluated in the emergency room where x-rays revealed a left femoral neck fracture. Patient states that she does live alone, but does not need any assistive devices to ambulate. Patient states that her pain is well controlled as long she does not move the left leg. Orthopedic surgery planning to proceed to or this afternoon Review of Systems REVIEW OF SYSTEMS: CONSTITUTIONAL: No fever, no malaise, no fatigue. HEENT: No recent visual problems or hearing problems. Denied any sore throat. CARDIOVASCULAR: No chest pain, orthopnea, PND, no palpitations, no syncope. PULMONARY: No shortness of breath, no cough, no hemoptysis. GASTROINTESTINAL: No diarrhea, no nausea, no vomiting, no abdominal pain. NEUROLOGICAL: No headaches, no weakness, no numbness. HEMATOLOGICAL: Denies any bleeding or petechiae. GENITOURINARY: Denies any burning micturition, frequency, or urgency. MUSCULOSKELETAL/RHEUMATOLOGICAL: Denies any joint pain, swelling, or any muscle pain. ENDOCRINE: Denies any polyuria or polydipsia. The rest of the 14-point review of systems is negative. Past Medical History Past Medical History: Cancer, GERD/Reflux, GI Bleed, Hypertension, Osteoarthritis (OA) Additional Past Medical History / Comment(s): Patient states has undiagnosed Sleep Apnea. IBS. Skin cancer 5-6 yrs ago. History of Any Multi-Drug Resistant Organisms: None Reported Past Surgical History: Appendectomy, Cholecystectomy, Hysterectomy, Orthopedic Surgery Additional Past Surgical History / Comment(s): VARICOSE VEIN. Hemmorrhoidectomy. Past Anesthesia/Blood Transfusion Reactions: No Reported Reaction Past Psychological History: No Psychological Hx Reported Smoking Status: Never smoker Past Alcohol Use History: Occasional Past Drug Use History: None Reported - Past Family History Sister(s) Family Medical History: Cancer Additional Family Medical History / Comment(s): Non Hodgkins Lymphoma. Father Family Medical History: Cancer Additional Family Medical History / Comment(s): Multiple Myeloma. Medications and Allergies Home Medications Medication Instructions Recorded Confirmed Type Celecoxib [CeleBREX] 200 mg PO DAILY 06/20/20 01/26/22 History Niacinamide 500 mg PO DAILY 06/20/20 01/26/22 History Amitriptyline HCl 25 mg PO HS 01/26/22 01/26/22 History Brimonidine Tartrate [Lumify] 1 drop BOTH EYES DAILY PRN 01/26/22 01/26/22 History Celecoxib [CeleBREX] 200 mg PO DAILY 01/26/22 01/26/22 History Cholecalciferol [Vitamin D3 (25 50 mcg PO DAILY 01/26/22 01/26/22 History Mcg = 1000 Iu)] Fluocinonide [Lidex 0.05%] 1 applic TOPICAL DAILY PRN 01/26/22 01/26/22 History Glucosamine/Chondr Nguyen A Sod [Osteo 1 tab PO BID 01/26/22 01/26/22 History Bi-Flex Caplet] Hydroxychloroquine Sulfate 200 mg PO BID 01/26/22 01/26/22 History [Plaquenil] Ketoconazole 2% Shampoo [Nizoral] 1 applic TOPICAL DAILY PRN 01/26/22 01/26/22 History Esteban 3s Fish Oil, Flax Oil, & 1 cap PO BID 01/26/22 01/26/22 History Borage Oil Multivit-Min/Iron/Folic/Lutein 1 tab PO DAILY 01/26/22 01/26/22 History [Centrum Silver Women Tablet] Omeprazole [PriLOSEC] 20 mg PO DAILY 01/26/22 01/26/22 History Pilocarpine [Salagen] 5 mg PO TID 01/26/22 01/26/22 History Propylene Glycol/Peg 400/Pf 1 dropper BOTH EYES DAILY PRN 01/26/22 01/26/22 History [Systane 0.3-0.4% Eye Drop] Valsartan/Hydrochlorothiazide 1 tab PO DAILY 01/26/22 01/26/22 History [Valsartan-Hctz 160-12.5 mg Tab] Allergies Allergy/AdvReac Type Severity Reaction Status Date / Time No Known Allergies Allergy Verified 01/26/22 19:13 Physical Exam Vitals: Vital Signs Temp Pulse Pulse Resp BP BP Pulse Ox 01/27/22 08:00 98.5 F 92 16 129/75 90 L 01/27/22 02:00 97.4 F L 92 16 108/63 92 L 01/26/22 21:26 98.3 F 97 16 167/78 97 01/26/22 20:09 97 18 134/75 96 01/26/22 18:33 98.9 F 103 H 18 135/73 95 Intake and Output 01/26/22 01/27/22 01/27/22 22:59 06:59 14:59 Output Total 450 Balance -450 Output: Urine 450 Other: Weight 71.214 kg PHYSICAL EXAMINATION: GENERAL: The patient is alert and oriented x3, not in any acute distress. Well developed, well nourished. HEENT: Pupils are round and equally reacting to light. EOMI. No scleral icterus. No conjunctival pallor. Normocephalic, atraumatic. No pharyngeal erythema. No thyromegaly. CARDIOVASCULAR: S1 and S2 present. No murmurs, rubs, or gallops. PULMONARY: Chest is clear to auscultation, no wheezing or crackles. ABDOMEN: Soft, nontender, nondistended, normoactive bowel sounds. No palpable organomegaly. MUSCULOSKELETAL: No joint swelling or deformity. EXTREMITIES: No cyanosis, clubbing, or pedal edema. NEUROLOGICAL: Gross neurological examination did not reveal any focal deficits. SKIN: No rashes. Results CBC & Chem 7: 01/26/22 18:37 01/26/22 18:37 Labs: Abnormal Lab Results - Last 24 Hours (Table) 01/26/22 Range/Units 18:37 Glucose 117 H (74-99) mg/dL Assessment and Plan Assessment: 1. Left femoral neck fracture -- Orthopedic surgery on board and Planning for left hip gamma nail in the operating room later this afternoon with Dr. Neri 2. Hypertension; patient takes Valsartan/hydrochlorothiazide; we will monitor blood pressure closely and resume medication once blood pressure is stable 3. Osteoarthritis; patient takes Celebrex; we will hold off postoperative; can use Tylenol as needed 4. Gastroesophageal reflux disease; Protonix 20 mg daily DVT prophylaxis; SCDs CODE STATUS; full
--- NOTE | 2022-01-27 17:48 | P.OP ---
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 [place] Trident II 50 mm cup augmented with 2 dome screws 2. [place] accolade C size #4 standard offset femoral stem 3. Aleida dual mobility 38 mm outer diameter, 22.2 mm inner diameter +0 (dual mobility was utilized due to this being a femoral neck fracture case and having an elevated dislocation risk) Anesthesia: GETA Surgeon: Stephen Neri Coremaker Apprentice #1: Randa Ellis Estimated Blood Loss (ml): 300 IV fluids (ml): 1,000 Urine output (ml): 400 Pathology: other (Femoral head to pathology) Condition: stable Disposition: PACU Indications for Procedure: I met with the patient and their family to discuss treatment options. We reviewed her x-rays and computed tomography scan which showed a somewhat unique fracture pattern with a subcapital femoral neck fracture anteriorly and a basicervical femoral neck fracture posteriorly. My recommendation was to take an intraoperative image with traction using the hand table and make a final determination on treatment based on this traction view. We discussed both a gamma nail and a total hip replacement and the pros and cons of both. After the traction view the patient had a fracture which I felt was better treated with a total hip replacement. I went out and spoke with her son who agreed. My recommendation was to perform the total hip arthroplasty through a direct anterior approach to help lower the risk of dislocation and improve postoperative recovery and use cemented fixation of the femoral component to reduce the risk of fracture and postoperative thigh pain. We discussed the potential risks and complications of a total hip replacement for displaced femoral neck fracture at length. Risks discussed include are certainly not limited to risks from anesthesia, superficial infection requiring local wound care and possibly surgical debridement, deep periprosthetic joint infection and the treatment for this, damage to local blood vessels or nerves particularly the lateral femoral cutaneous nerve, intraoperative fracture, postoperative periprosthetic fracture, leg length discrepancy, hip dislocation, aseptic loosening, groin pain, thigh pain, risk of revision, complications related to cementing the component, an inability to regain preinjury level of function, DVT, PE, acute coronary event, stroke, pneumonia, urinary tract infection, failure to thrive, and possibly . The patient and their family understand that while these are the most common complications other less common complications are possible. The patient and her son also understand the elevated risk of having a complication particularly dislocation given the indication for femoral neck fracture. They provided their verbal and written consent to go forward with surgery. Operative Findings: Upon entering the hip joint there was a large hemarthrosis consistent with an intracapsular hip fracture. The femoral neck fracture plane was subcapital anteriorly and basicervical posteriorly. The calcar was intact and the fracture line exited above the level of the lesser trochanter Description of Procedure: The patient was identified in the preoperative holding area and the correct hip was marked with my initials. I reviewed the procedure and consent with the patient. All of their questions were answered. The patient was then brought back into the operating room by anesthesia. While on the [facility] anesthesia was administered by the anesthesia team. Preoperative antibiotics and tranexamic acid were also given. After the patient was under anesthesia I examined their ankles to determine their preoperative leg length discrepancy. The skin over the anterior aspect of the hip was shaved to remove hair over the site of planned incision. Both feet and ankles were padded with webril and boots for the [place] were applied. The patient was then carefully transferred onto the [place] table. A perineal post was immediately placed. The arms were placed on arm holders and were well-padded. Both boots were secured to the spars on the [place] table. The patient was positioned so that the pelvis was centered over the post. Nonsterile drapes were applied. A timeout was performed identifying the correct patient, operative extremity, and procedure. At this point fluoroscopy was brought in to take preoperative images of the pelvis and operative hip. Using the standing AP pelvis from the office as a template, a comparable image was obtained with fluoroscopy. A metallic bar was used to create a bi-ischial line for use as a reference to leg length adjustments during the procedure. Global offset was also measured on both the operative and nonoperative leg. Fluoroscopy was then brought out and a pre-scrub using a chlorhexidine scrub brush was performed. The operative limb was then prepped and draped in the standard sterile fashion. An anterior longitudinal incision was made lateral and distal to the ASIS. The skin and subcutaneous tissues were incised sharply. The underlying tensor fascia was identified and incised in its midportion. The fascia was dissected free from the underlying muscle and the muscle belly was retracted. A blunt tipped cobra retractor was placed over the superior neck under the muscle fibers of the gluteus minimus. The deep enveloping fascia of the tensor was incised. The anterior leash of vessels were then identified and cauterized. The fascia between the rectus and the capsule was then incised and the pre-capsular fat was excised. A second Cobra was placed inferior to the neck. The interval between the rectus and iliocapsularis and the hip capsule was developed and a retractor was placed carefully over the anterior rim of the acetabulum. A T-shaped anterior capsulotomy was performed. Immediately upon entering the hip capsule there was a large hemarthrosis. The superior capsular leaflet was left in place in the inferior capsular flap was excised. The Cobra retractors were placed intracapsularly. We then made a femoral neck osteotomy according to preoperative and intraoperative templating and confirmed the level of the osteotomy using fluoroscopic imaging. The femoral head was removed, passed off to the back table, and sized. On gross inspection of the femoral head there was an area over the inferomedial head consistent with avascular necrosis and collapse. The superior capsular flap was excised. Retractors were placed circumferentially exposing the acetabulum. There appeared to be moderate degenerative changes throughout the acetabulum. We then circumferentially debrided the acetabulum free of labrum and osteophytes. The pulvinar was removed to fully visualize the cotyloid fossa. We then sequentially reamed to achieve peripheral fit and excellent bleeding subchondral bone. The socket was thoroughly irrigated. The acetabular component was impacted into the appropriate position using fluoroscopy to guide version, inclination, and depth of insertion taking care to have a comparable image of the AP pelvis to the standing image taken in the office. An excellent press-fit was achieved and final position was confirmed using fluoroscopy. The press fit was augmented with bony cancellus dome screws. The liner was then impacted into the socket. Attention was then turned to the femur. The remnant dorsal lateral capsule was excised. The short external rotators were visible and protected. A bone hook was used to confirm appropriate translation of the trochanter away from the acetabulum. The leg was then extended and adducted and the bone hook was used to elevate the femur for broaching. On inspection of the patient's proximal femur, they appeared to have poor bone quality so I elected to proceed with cemented fixation of the femoral component. A box osteotome and blunt tipped canal sound was then utilized to gain access to the femoral canal. We then sequentially broached the femur in appropriate anteversion until torsional stability was achieved and the implant was felt to have reached the appropriate size to allow trialing. The neck cut was brought flush to the trial broach with a calcar planar. A trial neck and head were then placed onto the broach and the hip was atraumatically reduced under direct visualization. External rotation to 90 was performed to assess stability. Fluoroscopy was brought in. An AP and lateral fluoroscopic image of the proximal femur was obtained to assess position and fill of the trial broach. An AP of the pelvis was then obtained and matched to the preoperative image taken. A bi-ischial bar was then placed and measurements were taken to assess changes in length and offset. The hip was then carefully dislocated, the proximal femur was exposed, and the trial implants were removed. The proximal femur was then prepared for cementing. The canal was thoroughly irrigated with pulsatile lavage to remove blood and marrow contents. A cement restrictor was placed to a depth just distal to the tip of the final implant. Epinephrine-soaked gauze was then packed into the proximal femur. 2 bags of cement were then mixed using a centrifuge and placed into a cement gun. Anesthesia was notified that cementing was about to commence to make sure the patient was appropriately ventilated and hydrated. Once the cement had reached appropriate consistency, the cement gun was used to fill the canal in a retrograde fashion starting at the restrictor. Cement was then pressurized into the canal with a blue tipped control clerk auditing. The stem was then carefully introduced into the cement taking care to guide the implant into appropriate version. The stem was held in position until the cement had fully set. All extra cement was removed while the cement was hardening. The trunnion was cleansed and the final head was tapped into place to engage the Barrett taper. The acetabulum was irrigated and visualized to be free of debris. The hip was carefully reduced. Stability was checked clinically with external rotation to 90 and there was no evidence of instability. Final fluoroscopic images were taken. The wound was then thoroughly irrigated and soaked with a dilute Betadine rinse for 3 minutes. 3 L of sterile saline was irrigated through the wound using pulsatile lavage. Local anesthetic cocktail was injected into the soft tissues around the surgical field. A deep drain was placed. The wound was then closed in layers. A sterile dressing was placed over the surgical incision and drain site. The drapes were taken down and the patient was carefully transferred off of the [place] table. Following removal of the boots the leg lengths felt acceptable. The patient was then taken to recovery room having tolerated the procedure well. Randa Ellis PA-C was required as a skilled specimen preparation assistant for patient positioning, surgical exposure, retraction, placement of implants, and closure of the surgical wound. PLAN: The patient can weight-bear as tolerated on the operative extremity. 2 doses of postoperative antibiotics. DVT prophylaxis with aspirin 81 mg twice a day based on preoperative risk stratification. Physical therapy for gait training. Discontinue drain postoperative day #1 if output is less than 100 mL per shift.
--- NOTE | 2022-01-27 18:08 | XR ---
EXAMINATION TYPE: XR Hip Limited LT DATE OF EXAM: 01/27/2022 COMPARISON: Yesterday HISTORY: Fall. Pain TECHNIQUE: Single view FINDINGS: There is left hip prosthesis. Components are in anatomic position. IMPRESSION: Left hip prosthesis. No complicating process seen.
[2022-01-27] MEDS: HYDROcodone/APAP 7.5-325MG 1 EACH TAB PO PRN (19:21)
[2022-01-27] MEDS: HYDROmorphone 0.5 MG/0.5 ML SYRINGE IVP PRN (21:57)
[2022-01-27] MEDS: SENNOSIDES-DOCUSATE SODIUM 1 EACH TAB PO SCH (21:57)
[2022-01-27] MEDS: ASPIRIN 81 MG PO SCH (21:57)
[2022-01-27] MEDS: AMITRIPTYLINE HCL 25 MG TAB PO SCH (23:18)
[2022-01-28] MEDS: HYDROmorphone 0.5 MG/0.5 ML SYRINGE IVP PRN (06:19)
--- NOTE | 2022-01-28 08:07 | FL ---
EXAMINATION TYPE: FL guidance operating room DATE OF EXAM: 01/27/2022 CLINICAL HISTORY: Left hip fracture. TECHNIQUE: Fluoroscopy. COMPARISON: Pelvic and left hip x-ray from one day earlier. FINDINGS: Fluoroscopic guidance was provided during left hip replacement procedure performed by Dr. Neri. A total of 1.19 minutes of fluoroscopic time was utilized during the procedure and 9 spot intraoperative images are acquired. IMPRESSION: As Above.
[2022-01-28] MEDS: ASPIRIN 81 MG PO SCH ×2 (08:10→20:06)
[2022-01-28] MEDS: HYDROcodone/APAP 7.5-325MG 1 EACH TAB PO PRN ×3 (08:11→22:02)
[2022-01-28] MEDS: hydroCHLOROthiazide 12.5 MG CAP PO SCH (08:11)
[2022-01-28] MEDS: VALSARTAN 160 MG TAB PO SCH (08:11)
[2022-01-28] MEDS: PANTOPRAZOLE 40 MG TABLET PO SCH (08:11)
[2022-01-28] MEDS: CHOLECALCIFEROL 25 MCG (1000 IU) TABLET PO SCH (08:11)
[2022-01-28] MEDS: SODIUM CHLORIDE 0.9% 1,000 ML IV SCH (08:12)
[2022-01-28] MEDS ORDERED: BRIMONIDINE TARTRATE BOTH EYES PRN (08:14)
--- NOTE | 2022-01-28 08:14 | P.PN ---
Subjective Progress Note Date: 01/28/22 Principal diagnosis: Hip fracture The patient's postop day #1 for hip fracture repair by anterior approach. Pain is nominal. She reports start rehab today. No voiding difficulties. No significant nausea, vomiting or diarrhea. Objective - Vital Signs Vital signs: Vital Signs Temp 98.2 F 01/28/22 07:43 Pulse 107 H 01/28/22 07:43 Resp 19 01/28/22 07:43 BP 115/72 01/28/22 07:43 Pulse Ox 92 L 01/28/22 07:43 Intake & Output 01/27/22 01/28/22 01/28/22 18:59 06:59 18:59 Intake Total 1651 Output Total 750 200 Balance 901 -200 Intake: IV 1651 Output: Urine 450 200 Estimated Blood Loss 300 Other: Voiding Method Indwelling Catheter Indwelling Catheter Indwelling Catheter # Bowel Movements 0 - Constitutional General appearance: Present: average body habitus - EENT Eyes: Absent: abnormal pupil - Neck Neck: Absent: lymphadenopathy - Respiratory Respiratory: bilateral: CTA - Cardiovascular Rhythm: regular Heart sounds: normal: S1, S2 Abnormal Heart Sounds: Absent: S3 Gallop, S4 Gallop - Gastrointestinal General gastrointestinal: Present: soft. Absent: tenderness - Labs CBC & Chem 7: 01/26/22 18:37 01/26/22 18:37 Assessment and Plan (1) Closed left hip fracture Current Visit: Yes Status: Acute Code(s): S72.002A - FRACTURE OF UNSP PART OF NECK OF LEFT FEMUR, INIT SNOMED Code(s): 641127201 (2) GERD (gastroesophageal reflux disease) Current Visit: No Status: Acute Code(s): K21.9 - GASTRO-ESOPHAGEAL REFLUX DISEASE WITHOUT ESOPHAGITIS SNOMED Code(s): 746640846 Plan: Appropriate postop protocol. Check CBC and CMP in a.m. Start PT/OT. Pain control per surgery.
--- NOTE | 2022-01-28 08:47 | P.PN ---
Subjective Progress Note Date: 01/28/22 This is a 71-year-old female who is status post left total hip arthroplasty with direct anterior approach. This is postoperative day #1 and patient is seen and evaluated at bedside today. Patient states that she does have some soreness in the left thigh, but otherwise is doing well today. Objective - Vital Signs Vital signs: Vital Signs Temp 98.2 F 01/28/22 07:43 Pulse 107 H 01/28/22 07:43 Resp 19 01/28/22 07:43 BP 115/72 01/28/22 07:43 Pulse Ox 92 L 01/28/22 07:43 Intake & Output 01/27/22 01/28/22 01/28/22 18:59 06:59 18:59 Intake Total 1651 Output Total 750 200 85 Balance 901 -200 -85 Intake: IV 1651 Output: Drainage 85 Left Hip 85 Urine 450 200 Estimated Blood Loss 300 Other: Voiding Method Indwelling Catheter Indwelling Catheter Indwelling Catheter # Bowel Movements 0 - Exam Vital signs are stable. Patient is in no acute distress and is alert and oriented 3. Calf is soft and nontender to palpation. Dressing is clean, dry, and intact. Patient has full foot and ankle motion without pain or difficulty. Sensation intact. Neurovascular status and circulatory status are intact. - Labs CBC & Chem 7: 01/26/22 18:37 01/26/22 18:37 Assessment and Plan (1) Closed left hip fracture Current Visit: Yes Status: Acute Code(s): S72.002A - FRACTURE OF UNSP PART OF NECK OF LEFT FEMUR, INIT SNOMED Code(s): 074853159 (2) Fall Current Visit: Yes Status: Acute Code(s): W19.XXXA - UNSPECIFIED FALL, INITIAL ENCOUNTER SNOMED Code(s): 2992281 Plan: Continue routine postop care and pain control. Continue anticoagulation with aspirin 81mg BID. Weightbearing as tolerated with a walker. Leave dressing in place for one week. Appreciate input from medicine. Physical therapy today. Anticipate discharge home with homecare or to [facility] in the next 24-48 hours.
[2022-01-28] MEDS ORDERED: [UNRECOGNIZED DRUG - OTHER] PO SCH (09:00)
[2022-01-28] MEDS ORDERED: BORAGE OIL PO SCH (09:00)
[2022-01-28] MEDS ORDERED: FLAX OIL PO SCH (09:00)
[2022-01-28 09:41] LABS: Basophils # (A) 0.02 X 10*3/uL (0.00-0.10); Basophils % (A) 0.3 %; Eosinophils # (A) 0.07 X 10*3/uL (0.04-0.35); Eosinophils % (A) 0.9 %; HCT 28.9 % (37.2-46.3); HGB 9.3 g/dL (12.0-15.0); Immature Grans, Automated 0.5 %; Lymphocytes # (A) 0.91 X 10*3/uL (0.90-5.00); Lymphocytes % (A) 11.7 %; MCH 31.3 pg (27.0-32.0); MCHC 32.2 g/dL (32.0-37.0); MCV 97.3 fL (80.0-97.0); Mean Platelet Volume 10.2 fL (9.5-12.2); Monocytes # (A) 1.04 X 10*3/uL (0.20-1.00); Monocytes % (A) 13.4 %; NRBC Per 100 WBC 0 /100 WBCS (0.0-0.0); Neutrophils % (A) 73.2 %; Platelet Count 131 X 10*3/uL (140-440); RBC 2.97 X 10*6/uL (4.10-5.20); RDW 12.4 % (11.5-14.5); WBC 7.78 X 10*3/uL (4.50-10.00)
[2022-01-28] MEDS: PILOCARPINE 5 MG TAB PO SCH ×3 (10:43→20:06)
[2022-01-28] MEDS: MULTIVITAMINS, THERA 1 EACH TAB PO SCH (10:43)
[2022-01-28] MEDS: NIACIN TR 500 MG CAPLET PO SCH (10:43)
[2022-01-28] MEDS: AMITRIPTYLINE HCL 25 MG TAB PO SCH (20:06)
[2022-01-28] MEDS: SENNOSIDES-DOCUSATE SODIUM 1 EACH TAB PO SCH ×2 (20:06→20:09)
[2022-01-29] MEDS: SODIUM CHLORIDE 0.9% 1,000 ML IV SCH ×2 (08:28→18:08)
--- NOTE | 2022-01-29 08:30 | P.PN ---
Subjective Principal diagnosis: Hip fracture The patient's postop day #2 for hip fracture repair by anterior approach. Pain is nominal. She reports start rehab today. No voiding difficulties. No significant nausea, vomiting or diarrhea. Objective - Vital Signs Vital signs: Vital Signs Temp 98.1 F 01/29/22 08:25 Pulse 102 H 01/29/22 08:25 Resp 17 01/29/22 01:04 BP 107/67 01/29/22 08:25 Pulse Ox 96 01/29/22 08:25 Intake & Output 01/28/22 01/29/22 01/29/22 18:59 06:59 18:59 Intake Total 350 Output Total 485 350 Balance -485 0 Intake: Oral 350 Output: Drainage 85 Left Hip 85 Urine 400 350 Other: Voiding Method Indwelling Catheter Toilet # Voids 1 2 # Bowel Movements 2 - Constitutional General appearance: Present: average body habitus - EENT Eyes: Absent: abnormal pupil - Neck Neck: Absent: lymphadenopathy - Respiratory Respiratory: bilateral: CTA - Cardiovascular Rhythm: regular Heart sounds: normal: S1, S2 Abnormal Heart Sounds: Absent: S3 Gallop - Gastrointestinal General gastrointestinal: Present: soft. Absent: tenderness - Integumentary Integumentary: Absent: cellulitis - Psychiatric Psychiatric: Present: A&O x's 3 - Labs CBC & Chem 7: 01/28/22 05:34 01/26/22 18:37 Labs: Abnormal Lab Results - Last 24 Hours (Table) 01/28/22 Range/Units 05:34 RBC 2.97 L (4.10-5.20) X 10*6/uL Hgb 9.3 L (12.0-15.0) g/dL Hct 28.9 L (37.2-46.3) % MCV 97.3 H (80.0-97.0) fL Plt Count 131 L (140-440) X 10*3/uL Monocytes # 1.04 H (0.20-1.00) X 10*3/uL Assessment and Plan (1) Closed left hip fracture Current Visit: Yes Status: Acute Code(s): S72.002A - FRACTURE OF UNSP PART OF NECK OF LEFT FEMUR, INIT SNOMED Code(s): 820625469 (2) GERD (gastroesophageal reflux disease) Current Visit: No Status: Acute Code(s): K21.9 - GASTRO-ESOPHAGEAL REFLUX DISEASE WITHOUT ESOPHAGITIS SNOMED Code(s): 954394105 Plan: Appropriate postop protocol. Start PT/OT. Pain control per surgery. The patient is opted for home health rehab. Anticipate discharge in next 24-48 hours per
[2022-01-29] MEDS: hydroCHLOROthiazide 12.5 MG CAP PO SCH (09:29)
[2022-01-29] MEDS: MULTIVITAMINS, THERA 1 EACH TAB PO SCH (09:29)
[2022-01-29] MEDS: CHOLECALCIFEROL 25 MCG (1000 IU) TABLET PO SCH (09:29)
[2022-01-29] MEDS: PANTOPRAZOLE 40 MG TABLET PO SCH (09:29)
[2022-01-29] MEDS: PILOCARPINE 5 MG TAB PO SCH ×3 (09:29→20:36)
[2022-01-29] MEDS: NIACIN TR 500 MG CAPLET PO SCH (09:29)
[2022-01-29] MEDS: ASPIRIN 81 MG PO SCH ×2 (09:29→20:35)
[2022-01-29] MEDS: VALSARTAN 160 MG TAB PO SCH (09:29)
[2022-01-29 09:33] LABS: HCT 26.1 % (37.2-46.3); HGB 8.7 g/dL (12.0-15.0); MCH 31.5 pg (27.0-32.0); MCHC 33.3 g/dL (32.0-37.0); MCV 94.6 fL (80.0-97.0); Mean Platelet Volume 10.1 fL (9.5-12.2); NRBC Per 100 WBC 0 /100 WBCS (0.0-0.0); Platelet Count 128 X 10*3/uL (140-440); RBC 2.76 X 10*6/uL (4.10-5.20); RDW 12.3 % (11.5-14.5); WBC 8.38 X 10*3/uL (4.50-10.00)
[2022-01-29 09:41] LABS: African American GFR (CKD) 106.3 (60.0-200.0); Albumin 3.2 g/dL (3.8-4.9); Albumin/Globulin Ratio 1.68 (1.60-3.17); Anion Gap 6.1 mmol/L (10.00-18.00); Blood Urea Nitrogen 10.2 mg/dL (9.0-27.0); Carbon Dioxide 28.9 mmol/L (20.0-27.5); Globulin 1.9 g/dL (1.6-3.3); Non-African American GFR(CKD) 91.7 (60.0-200.0); Potassium 3.9 mmol/L (3.5-5.5); Total Bilirubin 0.5 mg/dL (0.30-1.20); Total Protein 5.1 g/dL (6.2-8.2)
--- NOTE | 2022-01-29 13:08 | P.PN ---
Subjective Progress Note Date: 01/29/22 This is a 71-year-old female who is status post left total hip arthroplasty with direct anterior approach. This is postoperative day #2 and patient is seen and evaluated at bedside today. Patient states that she is doing very well and has been up and walking without difficulty. Objective - Vital Signs Vital signs: Vital Signs Temp 98.1 F 01/29/22 08:25 Pulse 102 H 01/29/22 08:25 Resp 17 01/29/22 01:04 BP 107/67 01/29/22 08:25 Pulse Ox 96 01/29/22 08:51 Intake & Output 01/28/22 01/29/22 01/29/22 18:59 06:59 18:59 Intake Total 350 Output Total 485 350 Balance -485 0 Intake: Oral 350 Output: Drainage 85 Left Hip 85 Urine 400 350 Other: Voiding Method Indwelling Catheter Toilet Toilet # Voids 1 2 # Bowel Movements 2 - Exam Vital signs are stable. Patient is in no acute distress and is alert and oriented 3. Calf is soft and nontender to palpation. Dressing is clean, dry, and intact. Patient has full foot and ankle motion without pain or difficulty. Sensation intact. Neurovascular status and circulatory status are intact. - Labs CBC & Chem 7: 01/29/22 05:25 01/29/22 05:25 Labs: Abnormal Lab Results - Last 24 Hours (Table) 01/29/22 01/29/22 Range/Units 05:25 05:25 RBC 2.76 L (4.10-5.20) X 10*6/uL Hgb 8.7 L (12.0-15.0) g/dL Hct 26.1 L (37.2-46.3) % Plt Count 128 L (140-440) X 10*3/uL Carbon Dioxide 28.9 H (20.0-27.5) mmol/L Anion Gap 6.10 L (10.00-18.00) mmol/L Glucose 137 H (70-110) mg/dL Calcium 8.0 L (8.7-10.3) mg/dL AST 36 H (13-35) U/L Total Protein 5.1 L (6.2-8.2) g/dL Albumin 3.2 L (3.8-4.9) g/dL Assessment and Plan (1) Closed left hip fracture Current Visit: Yes Status: Acute Code(s): S72.002A - FRACTURE OF UNSP PART OF NECK OF LEFT FEMUR, INIT SNOMED Code(s): 937988971 (2) Fall Current Visit: Yes Status: Acute Code(s): W19.XXXA - UNSPECIFIED FALL, INITIAL ENCOUNTER SNOMED Code(s): 3225297 Plan: Continue routine postop care and pain control. Continue anticoagulation with aspirin 81mg BID. Weightbearing as tolerated with a walker. Leave dressing in place for one week. Appreciate input from medicine. Physical therapy today. Anticipate discharge home with homecare tomorrow.
[2022-01-29] MEDS: HYDROcodone/APAP 7.5-325MG 1 EACH TAB PO PRN (18:06)
[2022-01-29] MEDS: AMITRIPTYLINE HCL 25 MG TAB PO SCH (20:35)
[2022-01-29] MEDS: SENNOSIDES-DOCUSATE SODIUM 1 EACH TAB PO SCH (20:36)
--- NOTE | 2022-01-30 08:30 | P.PN ---
Subjective Principal diagnosis: Hip fracture The patient's postop day #3 for hip fracture repair by anterior approach. Pain is nominal. She is tolerating rehab No voiding difficulties. The patient states IBS-type flare Objective - Vital Signs Vital signs: Vital Signs Temp 98.8 F 01/30/22 02:29 Pulse 104 H 01/30/22 02:29 Resp 17 01/30/22 02:29 BP 106/65 01/30/22 02:29 Pulse Ox 97 01/30/22 02:29 Intake & Output 01/29/22 01/30/22 01/30/22 18:59 06:59 18:59 Other: Voiding Method Toilet Toilet # Voids 4 - Constitutional General appearance: Present: average body habitus - EENT Eyes: Absent: abnormal pupil - Neck Neck: Absent: lymphadenopathy - Respiratory Respiratory: bilateral: CTA - Cardiovascular Rhythm: regular Heart sounds: normal: S1, S2 Abnormal Heart Sounds: Absent: S3 Gallop, S4 Gallop - Gastrointestinal General gastrointestinal: Present: soft. Absent: tenderness - Labs CBC & Chem 7: 01/29/22 05:25 01/29/22 05:25 Labs: Abnormal Lab Results - Last 24 Hours (Table) 01/29/22 01/29/22 Range/Units 05:25 05:25 RBC 2.76 L (4.10-5.20) X 10*6/uL Hgb 8.7 L (12.0-15.0) g/dL Hct 26.1 L (37.2-46.3) % Plt Count 128 L (140-440) X 10*3/uL Carbon Dioxide 28.9 H (20.0-27.5) mmol/L Anion Gap 6.10 L (10.00-18.00) mmol/L Glucose 137 H (70-110) mg/dL Calcium 8.0 L (8.7-10.3) mg/dL AST 36 H (13-35) U/L Total Protein 5.1 L (6.2-8.2) g/dL Albumin 3.2 L (3.8-4.9) g/dL Assessment and Plan (1) Closed left hip fracture Current Visit: Yes Status: Acute Code(s): S72.002A - FRACTURE OF UNSP PART OF NECK OF LEFT FEMUR, INIT SNOMED Code(s): 619183705 (2) GERD (gastroesophageal reflux disease) Current Visit: No Status: Acute Code(s): K21.9 - GASTRO-ESOPHAGEAL REFLUX DISEASE WITHOUT ESOPHAGITIS SNOMED Code(s): 079122235 Plan: The patient is stable from a medical perspective. Anticipate discharge later today. Follow-up in 7 days
[2022-01-30 08:58] LABS: Basophils # (A) 0.02 X 10*3/uL (0.00-0.10); Basophils % (A) 0.3 %; Eosinophils % (A) 3.1 %; HCT 24.2 % (37.2-46.3); Immature Grans, Automated 0.5 %; Lymphocytes # (A) 0.91 X 10*3/uL (0.90-5.00); Lymphocytes % (A) 14.3 %; MCH 31.6 pg (27.0-32.0); MCHC 33.1 g/dL (32.0-37.0); MCV 95.7 fL (80.0-97.0); Mean Platelet Volume 10.1 fL (9.5-12.2); Monocytes # (A) 1.03 X 10*3/uL (0.20-1.00); Monocytes % (A) 16.2 %; NRBC Per 100 WBC 0 /100 WBCS (0.0-0.0); Neutrophils # (A) 4.17 X 10*3/uL (1.80-7.70); Neutrophils % (A) 65.6 %; Platelet Count 123 X 10*3/uL (140-440); RBC 2.53 X 10*6/uL (4.10-5.20); RDW 12.3 % (11.5-14.5); WBC 6.36 X 10*3/uL (4.50-10.00)
[2022-01-30] MEDS: NIACIN TR 500 MG CAPLET PO SCH (09:29)
[2022-01-30] MEDS: PANTOPRAZOLE 40 MG TABLET PO SCH (09:29)
[2022-01-30] MEDS: VALSARTAN 160 MG TAB PO SCH (09:29)
[2022-01-30] MEDS: ASPIRIN 81 MG PO SCH (09:29)
[2022-01-30] MEDS: MULTIVITAMINS, THERA 1 EACH TAB PO SCH (09:29)
[2022-01-30] MEDS: hydroCHLOROthiazide 12.5 MG CAP PO SCH (09:29)
[2022-01-30] MEDS: PILOCARPINE 5 MG TAB PO SCH (09:29)
[2022-01-30] MEDS: SODIUM CHLORIDE 0.9% 1,000 ML IV SCH (09:29)
[2022-01-30] MEDS: CHOLECALCIFEROL 25 MCG (1000 IU) TABLET PO SCH (09:29)
[2022-01-30 09:36] VITALS: BP 108/65; PULSE 119; RESP 16; TEMP 98.2
--- NOTE | 2022-01-30 10:23 | P.DS ---
Providers Date of admission: 01/26/22 19:16 Expected date of discharge: 01/30/22 Attending physician: Stephen Neri Consults: 01/26/22 19:18 Consult Physician Urgent Consulting Provider: Ángel Buck Reason/Comments: Preop, femoral neck fracture Do you want consulting provider notified?: Already Contacted Primary care physician: Ángel Buck [place] [facility] Course: This is a 71-year-old female who is admitted to [facility] on 01/26/22 after a ground-level fall and sustaining injury to the left hip. X-rays in the emergency department revealed a left transcervical femoral neck fracture. She is admitted to our service for surgical intervention and care. Patient was taken to surgery for direct anterior left total hip arthroplasty on 01/27/[address] Neri. The procedure was performed without complication or sequelae. The patient is doing fairly well postoperatively. Vital signs and labs are stable on postoperative day #3. Patient was examined bedside today with Dr. Neri. Patient states she is doing well and has no specific complaints. Patient is ambulating with a walker with minimal assistance. She was having an IBS flare that has improved. She has been cleared by internal medicine today for discharge. Patient is comfortable returning home today. On examination, the patient is laying in bed in no apparent distress. She is sagrario rt and oriented 3. On inspection of the left hip, there is a clean, dry, intact Opsite dressing intact. Motor and sensory function intact LLE. The left lower extremity is warm and well perfused. Calf non-tender. Patient is discharged to rehab today in good condition, pending medical clearance. Patient will follow-up with Dr. Neri in the office in 2 weeks. Please see med rec for accurate list of discharge medication. Patient Condition at Discharge: Stable Plan - Discharge Summary Discharge Rx Participant: Yes New Discharge Prescriptions: New Aspirin [Adult Low Dose Aspirin EC] 81 mg PO BID 30 Days #60 tab HYDROcodone/APAP 7.5-325MG [[place] 7.5-325] 1 - 2 tab PO Q6H PRN #32 tab PRN Reason: Pain Sennosides [Senokot] 2 tab PO DAILY PRN #60 tablet PRN Reason: Constipation No Action Celecoxib [CeleBREX] 200 mg PO DAILY Niacinamide 500 mg PO DAILY Glucosamine/Chondr Nguyen A Sod [Osteo Bi-Flex Caplet] 1 tab PO BID Cholecalciferol [Vitamin D3 (25 Mcg = 1000 Iu)] 50 mcg PO DAILY Pilocarpine [Salagen] 5 mg PO TID Ketoconazole 2% Shampoo [Nizoral] 1 applic TOPICAL DAILY PRN PRN Reason: DRY/ITCHY SCALP Celecoxib [CeleBREX] 200 mg PO DAILY Amitriptyline HCl 25 mg PO HS Esteban 3s Fish Oil, Flax Oil, & Borage Oil 1 cap PO BID Multivit-Min/Iron/Folic/Lutein [Centrum Silver Women Tablet] 1 tab PO DAILY Valsartan/Hydrochlorothiazide [Valsartan-Hctz 160-12.5 mg Tab] 1 tab PO DAILY Omeprazole [PriLOSEC] 20 mg PO DAILY Hydroxychloroquine Sulfate [Plaquenil] 200 mg PO BID Fluocinonide [Lidex 0.05%] 1 applic TOPICAL DAILY PRN PRN Reason: RED/ITCHY SKIN Propylene Glycol/Peg 400/Pf [Systane 0.3-0.4% Eye Drop] 1 dropper BOTH EYES DAILY PRN PRN Reason: DRY EYES Brimonidine Tartrate [Lumify] 1 drop BOTH EYES DAILY PRN PRN Reason: DRY EYES Discharge Medication List Celecoxib [CeleBREX] 200 mg PO DAILY 06/20/20 [History] Niacinamide 500 mg PO DAILY 06/20/20 [History] Amitriptyline HCl 25 mg PO HS 01/26/22 [History] Brimonidine Tartrate [Lumify] 1 drop BOTH EYES DAILY PRN 01/26/22 [History] Celecoxib [CeleBREX] 200 mg PO DAILY 01/26/22 [History] Cholecalciferol [Vitamin D3 (25 Mcg = 1000 Iu)] 50 mcg PO DAILY 01/26/22 [History] Fluocinonide [Lidex 0.05%] 1 applic TOPICAL DAILY PRN 01/26/22 [History] Glucosamine/Chondr Nguyen A Sod [Osteo Bi-Flex Caplet] 1 tab PO BID 01/26/22 [History] Hydroxychloroquine Sulfate [Plaquenil] 200 mg PO BID 01/26/22 [History] Ketoconazole 2% Shampoo [Nizoral] 1 applic TOPICAL DAILY PRN 01/26/22 [History] Esteban 3s Fish Oil, Flax Oil, & Borage Oil 1 cap PO BID 01/26/22 [History] Multivit-Min/Iron/Folic/Lutein [Centrum Silver Women Tablet] 1 tab PO DAILY 01/26/22 [History] Omeprazole [PriLOSEC] 20 mg PO DAILY 01/26/22 [History] Pilocarpine [Salagen] 5 mg PO TID 01/26/22 [History] Propylene Glycol/Peg 400/Pf [Systane 0.3-0.4% Eye Drop] 1 dropper BOTH EYES DAILY PRN 01/26/22 [History] Valsartan/Hydrochlorothiazide [Valsartan-Hctz 160-12.5 mg Tab] 1 tab PO DAILY 01/26/22 [History] Aspirin [Adult Low Dose Aspirin EC] 81 mg PO BID 30 Days #60 tab 01/29/22 [Rx] HYDROcodone/APAP 7.5-325MG [[place] 7.5-325] 1 - 2 tab PO Q6H PRN #32 tab 01/29/22 [Rx] Sennosides [Senokot] 2 tab PO DAILY PRN #60 tablet 01/29/22 [Rx] Follow up Appointment(s)/Referral(s): [facility] [NON-STAFF] - As Needed (walker) Ángel Buck MD [Primary Care Provider] - 1-2 days [facility] [NON-STAFF] - 1 Week Stephen Neri MD [Medical Doctor] - 2 Weeks Activity/Diet/Wound Care/Special Instructions: Weightbearing as tolerated with walker. Leave dressing intact until follow-up appointment. May shower with initial dressing intact and after removal. Please take aspirin 81mg twice daily for 30 days to prevent blood clots. Recommend use of compression stockings daily until follow up to help prevent swelling and blood clots. May remove at night before sleeping. Please follow-up with [facility] in 2 weeks and call with any questions or concerns, . Discharge Disposition: HOME WITH HOME HEALTH SERVICES
== END 2022-01-30 12:03 | disposition home health service (06) | DRG 522 ==
LOC: EC 18:28 → 4SSUR 19:16
PROVIDERS: ADMIT Orthopaedic Surgery; ATTEND Orthopaedic Surgery
PROC: 0SRB0J9 Replacement of Left Hip Joint with Synthetic Substitute, Cemented, Open Approach (ICD-10-PCS; principal; 2022-01-27 10:00)
DX: S72.032A Displaced midcervical fracture of left femur, initial encounter for closed fracture (principal); W01.0XXA Fall on same level from slipping, tripping and stumbling without subsequent striking against object, initial encounter; I10 Essential (primary) hypertension; K21.00 Gastro-esophageal reflux disease with esophagitis, without bleeding; K58.9 Irritable bowel syndrome, unspecified; M19.90 Unspecified osteoarthritis, unspecified site; Z79.1 Long term (current) use of non-steroidal anti-inflammatories (NSAID); Z79.899 Other long term (current) drug therapy; Z80.7 Family history of other malignant neoplasms of lymphoid, hematopoietic and related tissues; Z85.828 Personal history of other malignant neoplasm of skin; Z90.710 Acquired absence of both cervix and uterus; M85.80 Other specified disorders of bone density and structure, unspecified site
CPT/HCPCS: 36415; 51702; 71045; 73501; 73502; 80053; 82306; 85025; 85027; 85610; 85730; 86850; 86900; 86901; 88305; 88311; 93005; 94760; 96374; 99285

== ENCOUNTER → 2022-07-09 | Outpatient (CLI) | payer MEDICARE | END | disposition home or self-care (01) | LOC: LABWHC1 14:09 | PROVIDERS: ATTEND Orthopaedic Surgery | DX: S72.042D Displaced fracture of base of neck of left femur, subsequent encounter for closed fracture with routine healing (principal); Z47.1 Aftercare following joint replacement surgery; Z96.642 Presence of left artificial hip joint; M67.854 Other specified disorders of tendon, left hip; X58.XXXD Exposure to other specified factors, subsequent encounter | CPT/HCPCS: 36415; 85379; 85652; 86140 ==

== ENCOUNTER → 2023-01-21 | Outpatient (CLI) | payer MEDICARE ==
--- NOTE | 2023-01-22 21:07 | MM ---
Reason for Exam: Screening (asymptomatic). Last mammogram was performed 1 year(s) and 1 month(s) ago. Patient History: Menarche at age 12. First Full-Term at age 23. Left ovary removed at age 47. Right ovary removed at age 47. Hysterectomy at age 47. Postmenopausal. Other cancer. Estrogen for 10 years, 4 months, from age 52 until age 62. 05/10/2008, Benign Cyst Aspiration on the right side. Risk Values: Polly 5 year model risk: 1.6%. NCI Lifetime model risk: 4.1%. Prior Study Comparison: 12/09/2019 Bilateral Screening Mammogram, [facility]. 12/27/2020 Bilateral Screening Mammogram, [facility]. 01/18/2022 Bilateral Screening Mammogram, [facility]. Tissue Density: The breast tissue is heterogeneously dense. This may lower the sensitivity of mammography. Findings: Analyzed By CAD. There is no suspicious group of microcalcifications or new suspicious mass in either breast. Overall Assessment: Benign, BI-RAD 2 Management: Screening Mammogram of both breasts in 1 year. . Patient should continue monthly self-breast exams. A clinical breast exam by your physician is recommended on an annual basis. This exam should not preclude additional follow-up of suspicious palpable abnormalities. Note on Polly scores and lifetime risk: 1. A Polly score greater than 3% is considered moderate risk. If this is the case, consider specialist referral to assess eligibility for a risk reducing agent. 2. If overall lifetime risk for the development of breast cancer is 20% or higher, the patient may qualify for future screening with alternating mammogram and breast MRI. Electronically signed and approved by: Sherin Umanzor M.D. Radiologist
== END | disposition home or self-care (01) ==
LOC: RADMAMWWP 15:56
PROVIDERS: ATTEND Family Medicine
DX: Z12.31 Encounter for screening mammogram for malignant neoplasm of breast (principal); Z78.0 Asymptomatic menopausal state; Z90.710 Acquired absence of both cervix and uterus
CPT/HCPCS: 77067

== ENCOUNTER → 2024-03-08 | Outpatient (CLI) | payer MEDICARE ==
--- NOTE | 2024-03-09 17:33 | MM ---
Reason for Exam: Screening (asymptomatic). Last mammogram was performed 1 year(s) and 1 month(s) ago. Patient History: Menarche at age 12. First Full-Term at age 23. Left ovary removed at age 47. Right ovary removed at age 47. Hysterectomy at age 47. Postmenopausal. Other cancer. Estrogen for 10 years, 4 months, from age 52 until age 62. 05/10/2008, Benign Cyst Aspiration on the right side. Risk Values: Polly 5 year model risk: 1.6%. NCI Lifetime model risk: 3.9%. Prior Study Comparison: 12/27/2020 Bilateral Screening Mammogram, [facility]. 01/18/2022 Bilateral Screening Mammogram, [facility]. 01/21/2023 Bilateral MG screening mammo w CAD, [facility]. Tissue Density: The breasts are heterogeneously dense, which may obscure small masses. Findings: Analyzed By CAD. The pattern is symmetrical. Pattern is stable. No suspicious groups of microcalcifications, spiculated or lobular masses, architectural distortion or other secondary signs of malignancy are mammographically apparent. Overall Assessment: Benign, BI-RAD 2 Management: Screening Mammogram of both breasts in 1 year. A negative mammogram report should not preclude additional follow up of suspicious palpable abnormalities. Patient should continue monthly self breast exam. A clinical breast exam by your physician is recommended on an annual basis and results should be correlated with mammographic findings. Note on Polly scores and lifetime risk: 1. A Polly score greater than 3% is considered moderate risk. If this is the case, consider specialist referral to assess eligibility for a risk reducing agent. 2. If overall lifetime risk for the development of breast cancer is 20% or higher, the patient may qualify for future screening with alternating mammogram and breast MRI. Electronically signed and approved by: Perry Portillo D.O. Radiologis
== END | disposition home or self-care (01) ==
LOC: RADMAMWWP 15:39
PROVIDERS: ATTEND Family Medicine
DX: Z12.31 Encounter for screening mammogram for malignant neoplasm of breast (principal); Z78.0 Asymptomatic menopausal state
CPT/HCPCS: 77067

== ENCOUNTER → 2025-04-11 | Outpatient (CLI) | payer MEDICARE ==
--- NOTE | 2025-04-11 14:10 | MM ---
Reason for Exam: Screening (asymptomatic). Last mammogram was performed 1 year(s) and 1 month(s) ago. Patient History: Menarche at age 12. First Full-Term at age 23. Left ovary removed at age 47. Right ovary removed at age 47. Hysterectomy at age 47. Postmenopausal. Other cancer. Estrogen for 10 years, 4 months, from age 52 until age 62. 05/10/2008, Benign Cyst Aspiration on the right side. Risk Values: Polly 5 year model risk: 1.6%. NCI Lifetime model risk: 3.7%. Prior Study Comparison: 01/18/2022 Bilateral Screening Mammogram, [facility]. 01/21/2023 Bilateral MG screening mammo w CAD, [facility]. 03/08/2024 Bilateral MG screening mammo w CAD, [facility]. Tissue Density: The breasts are heterogeneously dense, which may obscure small masses. Findings: Analyzed By CAD. Right breast: There is no suspicious group of microcalcifications or new suspicious mass. Left breast: There is no suspicious group of microcalcifications or new suspicious mass. Overall Assessment: Negative, BI-RAD 1 Management: Screening Mammogram of both breasts in [address] [facility] will attempt to contact patient to return for supplemental views and ultrasound if indicated. Patient should continue monthly self-breast exams. A clinical breast exam by your physician is recommended on an annual basis. This exam should not preclude additional follow-up of suspicious palpable abnormalities. Note on Polly scores and lifetime risk: 1. A Polly score greater than 3% is considered moderate risk. If this is the case, consider specialist referral to assess eligibility for a risk reducing agent. 2. If overall lifetime risk for the development of breast cancer is 20% or higher, the patient may qualify for future screening with alternating mammogram and breast MRI. [facility], , 04/11/2025 2:06 PM. Electronically signed and approved by: Matheus Andrews DO
== END | disposition home or self-care (01) ==
LOC: RADMAMWWP 11:36
PROVIDERS: ATTEND Family Medicine
DX: Z12.31 Encounter for screening mammogram for malignant neoplasm of breast (principal); R92.333 Mammographic heterogeneous density, bilateral breasts; Z78.0 Asymptomatic menopausal state
CPT/HCPCS: 77067